=== PATIENT | female | born 1945 | race Caucasian/White ===

== ENCOUNTER → 2016-05-18 | Outpatient (CLI) | payer MEDICARE ==
--- NOTE | 2016-05-18 10:56 | WWHP ---
DATE OF SERVICE: 05/18/2016 CHIEF COMPLAINT: The patient is here for her routine gynecologic exam and mammogram. HPI: This is a 70-year-old G3, P3 with an LMP of 1984 who is status post LYSSA and later BSO for benign reasons. The patient is without gynecologic complaints. PAST MEDICAL HISTORY: Hypothyroidism, chronic hypertension, elevated cholesterol, seasonal allergies and fibromyalgia. MEDICATIONS: 1. Thuy 1 daily. 2. Aspirin 81 mg daily. 3. Lisinopril 5 mg daily. 4. Vitamin D 50,000 units weekly. 5. Red rice yeast 500 mg daily. 6. CoQ10, 100 mg b.i.d. 7. A digestive advantage supplement daily. Allergies to ERYTHROMYCIN, SULFA, and BIAXIN. PAST SURGICAL HISTORY: section x3, LYSSA 1984, BSO in 1996, multiple colonoscopies in the past and the most recent one was in 2014. SOCIAL HISTORY: She denies tobacco, alcohol, and drug use. She has been since 1970 and is retired. She likes to travel in their motor home. FAMILY HISTORY: Sister had colon cancer, father had cirrhosis of the liver and mother had an TX. REVIEW OF SYSTEMS: Weight has been stable. She denies respiratory, cardiac, or GI problems. She denies maltreatment or falling. : She has not had a significant problems with bladder incontinence. PHYSICAL EXAM: Blood pressure 138/77. Height 5 feet 5 inches. Weight 176 pounds. Temperature 96.7, pulse 71. This a well-developed, well-nourished white female who is alert and oriented x3 in no acute distress. HEENT is within normal limits. NECK: Supple without mass or thyromegaly. CHEST AND LUNGS: Clear to auscultation. HEART: Regular rate and rhythm. Breasts are without mass or discharge. Axillary exam is negative for adenopathy. BACK: Negative for CVA tenderness. ABDOMEN: Soft, nontender, without palpable masses. PELVIC EXAM: External genitalia reveals mild to moderate atrophy without lesions. Vagina reveals moderate atrophy without lesions. There is no evidence of prolapse. Bimanual exam is negative for mass or tenderness. Rectovaginal exam is negative for mass or tenderness and is negative for occult blood. EXTREMITIES: Nontender. IMPRESSION: A 70-year-old menopausal female, status post LYSSA/BSO for benign reasons with normal gynecologic exam. PLAN: 1. Pap smears have been discontinued. 2. Self breast examination was discussed. 3. Mammogram will be done today. 4. Osteoporosis prevention was discussed. 5. We will plan on having her repeat her bone density test next year. 6. She is declining flu shots and I recommended that she look into doing this. 7. She will continue to check home blood pressures and follow up with her primary care physician for her blood pressure elevations. 8. She will return in one year.
--- NOTE | 2016-05-19 09:06 | MM ---
Reason for exam: screening (asymptomatic). Last mammogram was performed 1 year and 2 months ago. History: Patient is postmenopausal and history of other cancer. Family history of breast cancer in 2 aunts. Physical Findings: A clinical breast exam by your physician is recommended on an annual basis and results should be correlated with mammographic findings. MG 3D Screening Mammo W/Cad Bilateral CC and MLO view(s) were taken. Prior study comparison: March 13, 2015, bilateral MG screening mammo w CAD. January 01, 2014, bilateral MG screening mammo w CAD. The breast tissue is heterogeneously dense. This may lower the sensitivity of mammography. Finding: Architectural distortion in the 3 o'clock position of the left breast, 7-8 cm from the nipple. New finding since March 13, 2015 and January 01, 2014. ASSESSMENT: Incomplete: need additional imaging evaluation, BI-RAD 0 RECOMMENDATION: Ultrasound of the left breast. [facility] will attempt to contact patient to return for ultrasound.
== END | disposition home or self-care (01) ==
LOC: WWCWWP 09:14
PROVIDERS: ATTEND Obstetrics & Gynecology
DX: Z12.31 Encounter for screening mammogram for malignant neoplasm of breast (principal); R92.8 Other abnormal and inconclusive findings on diagnostic imaging of breast
CPT/HCPCS: 77063; G0202

== ENCOUNTER → 2016-05-20 | Outpatient (CLI) | payer MEDICARE ==
--- NOTE | 2016-05-20 11:15 | USB ---
Reason for exam: additional evaluation requested from abnormal screening. History: Patient is postmenopausal and history of other cancer. Family history of breast cancer in 2 aunts. Physical Findings: Nurse did not find any significant physical abnormalities on exam. US Breast Workup LT Left breast ultrasound including all four quadrants, the retroareolar region and axilla demonstrates a 0.59 x 0.26 x 0.49cm solid, shadowing and irregular appearing lesion at 1 o'clock for which a biopsy is recommended, a 0.76 x 1.0 x 1.0cm solid, irregular, taller than wide lesion at 3 o'clock for which a biopsy is recommended and a 0.36 x 0.34 x 0.45cm mixed, indeterminate lesion at the axilla tail at 1 o'clock for which a biopsy is recommended. These results were verbally communicated with the patient and result sheet given to the patient on 05/20/16. ASSESSMENT: Incomplete: need additional imaging evaluation, BI-RAD 0 RECOMMENDATION: Special view mammogram of the left breast.
--- NOTE | 2016-05-20 11:21 | MM ---
Reason for exam: additional evaluation requested from abnormal screening. Last mammogram was performed less than 1 month ago. History: Patient is postmenopausal and history of other cancer. Family history of breast cancer in 2 aunts. MG Work Up Mamm w CAD LT LM view(s) were taken of the left breast. Prior study comparison: May 18, 2016, bilateral MG 3d screening mammo w/ cad. March 13, 2015, bilateral MG screening mammo w CAD. January 01, 2014, bilateral MG screening mammo w CAD. The breast tissue is heterogeneously dense. This may lower the sensitivity of mammography. There is chronic nodularity in the left breast. 3 o'clock spiculated mass at a middle depth redemonstrated. These results were verbally communicated with the patient and result sheet given to the patient on 05/20/16. ASSESSMENT: Suspicious, BI-RAD 4 RECOMMENDATION: Surgical consultation and ultrasound core biopsy of the left breast (3 sites) Called Dr. Stapleton with mammographic findings and has scheduled an appointment for the patient for 05/21/16 at 11:[address] Stapleton. Biopsy scheduled for 05/28/16 at 11:00 PRELIMINARY REPORT CALLED AND FAXED TO DR. STAPLETON ON 05/20/16 AT 300/TP. [facility]
== END | disposition home or self-care (01) ==
LOC: RADUSWWP 08:20
PROVIDERS: ATTEND Obstetrics & Gynecology
DX: R92.8 Other abnormal and inconclusive findings on diagnostic imaging of breast (principal)
CPT/HCPCS: 76641; G0206

== ENCOUNTER → 2016-05-28 | Day surgery (SDC) | payer MEDICARE ==
[~2016-05-28] MED LIST: ALPRAZolam 0.25 MG TAB ONE; BACITRACIN OINT 1 EACH PACKET TOPICAL ONE; LIDOCAINE 1% INJ 10MG/ML (20 ML MDV) ONE; SODIUM BICARB 4% 5 ML VIAL (0.48 MEQ/ML) ONE
--- NOTE | 2016-05-28 13:00 | USB ---
EXAMINATION TYPE: US biopsy breast VAD LT, US biopsy breast add'l VAD LT, MG diagnostic mammo LT wo CAD DATE OF EXAM: 05/28/2016 11:16 AM CLINICAL HISTORY: R92.8 Abnormal Mammogram. TECHNIQUE: Ultrasound guided core biopsy of left breast at site 3:00 and 2:00 near the axillary tail. A third area at 1:00 could not be reproduced. COMPARISON: NONE FINDINGS: The procedure of ultrasound guided core biopsy was explained to the patient. Benefits, alternatives, and risks were discussed. An informed consent was then obtained. The patient was placed in supine positioning for imaging and for the procedure. The overlying skin was prepped and draped in usual sterile fashion. Lidocaine buffered with bicarbonate was used as anesthetic into the skin and subcutaneous tissue up to area of concern in the left breast at 2 and 3:00 breast. A yonatan was made with surgical scalpel. Under ultrasound guidance, a 12-gauge vacuum assisted biopsy gun device was used to obtain 4 core samples from the 3:00 lesion and 5 samples from the 2:00 lesion. Following this, a biopsy clip were left in lesions. The patient tolerated the procedure well without any immediate complication. The patient was kept in the radiology department for short stay after the procedure and then discharged home in stable condition. IMPRESSION: Successful, uncomplicated ultrasound guided core biopsy of area of concern in the left breast at two sites, full pathology results to follow. Pathology Results: Malignant A. BREAST, LEFT, THREE O'CLOCK, CORE BIOPSY: INVASIVE LOBULAR CARCINOMA. SEE SURGICAL PATHOLOGY CANCER CASE SUMMARY AND COMMENT. B. BREAST, LEFT, TWO O'CLOCK, CORE BIOPSY: BENIGN LYMPH NODE TISSUE. CK7 AND MARQUIS IMMUNOPEROXIDASE STAINS ARE CONFIRMATORY (CONTROLS APPROPRIATE). Recommendation Surgical consult of the left breast. MTDD
== END ==
LOC: RADUSWWP 09:43
PROVIDERS: ATTEND Surgery
DX: C50.912 Malignant neoplasm of unspecified site of left female breast (principal)
CPT/HCPCS: 88305; 88342; 88341; 19083; 19084; G0206; A4648; J2001; 88361

== ENCOUNTER 2016-06-08 10:56 | Day surgery (SDC) | payer MEDICARE ==
[2016-06-04 11:42] VITALS: BMI 29.2
[~2016-06-08 10:56] MED LIST changes: -ALPRAZolam 0.25 MG TAB ONE; +ALPRAZolam 0.25 MG TAB PO PRN; -BACITRACIN OINT 1 EACH PACKET TOPICAL ONE; +DEXAMETHASONE SOD PHOSPHATE 10 MG/ML 1 ML VIAL IV ONE; +HEPARIN SODIUM,PORCINE 5,000 UNIT/ML 1 ML VIAL SQ ONE; +HYDROmorphone 1 MG/ML 1 ML SYRINGE IVP PRN; +LACTATED RINGERS 1,000 ML IV SCH; -LIDOCAINE 1% INJ 10MG/ML (20 ML MDV) ONE; +ONDANSETRON 4 MG/2 ML VIAL IVP ONE; +Pre Op ABX Message 1 EACH MISC MISCELLANE ONE; -SODIUM BICARB 4% 5 ML VIAL (0.48 MEQ/ML) ONE
[2016-06-08] MEDS ORDERED: LIDOCAINE 1% 20 ML VIAL (10MG/ML) FOR IV START INTRADERMA ONE (11:40)
[2016-06-08 12:05] VITALS: TEMP 98
[2016-06-08] MEDS ORDERED: SODIUM BICARB 4% 5 ML VIAL (0.48 MEQ/ML) MISCELLANE ONE (12:09)
[2016-06-08] MEDS ORDERED: LIDOCAINE 1% INJ 10MG/ML (20 ML MDV) SQ ONE (12:09)
--- NOTE | 2016-06-08 13:31 | NM ---
EXAMINATION TYPE: NM sentinel node injection DATE OF EXAM: 06/08/2016 12:39 PM COMPARISON: NONE HISTORY: Left breast cancer TECHNIQUE AND FINDINGS: The procedure of sentinel lymph node injection was explained to the patient. The benefits, alternatives, and risks were discussed. An informed consent was then obtained. Overlying skin is cleaned with sterile alcohol. Lidocaine buffered with bicarbonate was used as anes thetic into the skin and subcutaneous tissue surrounding the nipple. Following this, 517 uCi Tc 99m Filtered Sulfur Colloid was injected into 4 equivalent doses at 12, 3, 6, and 9:00 position surroundi ng the left nipple intradermally. The injection sites were massaged by nuclear medicine officer for 10 minutes after injection. T he patient tolerated the procedure well without any immediate complication. The patient was kept in the radiology department for short stay after the procedure and then taken to surgery for surgical pr ocedure what is presumed intraoperative gamma probe will be used for sentinel lymph node detection. IMPRESSION: Left breast radiotracer injection for sentinel node localization as above.
[2016-06-08] MEDS ORDERED: ROCURONIUM BROMIDE 10 MG/ML 10 ML VIAL IV ONE (14:10)
[2016-06-08] MEDS ORDERED: SUCCINYLCHOLINE CHLORIDE 100 MG/5 ML SYR IV ONE (14:10)
[2016-06-08] MEDS ORDERED: fentaNYL (PF) 50 MCG/ML 2 ML AMP ONE (14:10)
[2016-06-08] MEDS ORDERED: NEOSTIGMINE 1 MG/ML 10 ML VIAL ONE (14:10)
[2016-06-08] MEDS ORDERED: ePHEDrine 50 MG/ML 1 ML AMP ONE (14:10)
[2016-06-08] MEDS ORDERED: LIDOCAINE 1% INJ 10MG/ML (20 ML MDV) ONE (14:10)
[2016-06-08] MEDS ORDERED: MIDAZOLAM 2 MG/2 ML VIAL ONE (14:10)
[2016-06-08] MEDS ORDERED: PROPOFOL 10 MG/ML 20 ML VIAL IV ONE (14:10)
[2016-06-08] MEDS ORDERED: GLYCOPYRROLATE 0.2 MG/ML 2 ML VIAL ONE (14:10)
[2016-06-08] MEDS ORDERED: SODIUM CHLORIDE 0.9% 50 ML with ceFAZolin 2,000 MG IV ONE ×2 (14:25)
[2016-06-08] MEDS ORDERED: METHYLENE BLUE 10 MG/ML 1 ML VIAL INJ ONE (15:26)
[2016-06-08] MEDS ORDERED: LACTATED RINGERS 1,000 ML IV ONE (15:53)
--- NOTE | 2016-06-08 15:59 | P.OP ---
Date of Procedure: 06/08/16 Preoperative Diagnosis: Left breast cancer Postoperative Diagnosis: Same Procedure(s) Performed: Lymphatic mapping, sentinel node biopsy, left breast lumpectomy with onco- plastic tissue rearrangement and placement of Eve balloon Anesthesia: ERVIN Surgeon: Brenna Stapleton Estimated Blood Loss (ml): 30 IV fluids (ml): 700 Pathology: other (Left breast lumpectomy specimen, sentinel node) Condition: stable Disposition: PACU Operative Findings: Biopsy-proven left breast cancer Description of Procedure: Patient was taken to the operating room in the left breast and axilla were prepped and draped in a sterile fashion. Prior to this 6 mL of quarter strength methylene blue were injected in the periareolar region and the breast was massaged. The area of the needle localization site was evaluated. An incision was made and carried into the hook of the needle and surrounding tissue was excised. Margin probe interrogation was performed on the specimen and anteriorly there was one spot which was positive all others were negative. Wide reexcision was performed including the skin at this site. The specimen was painted for orientation and sent to radiology for confirmation that the area of concern had been removed was obtained. Following this the axilla was approached in the apical instrument and gowns and gloves were changed. The neoprobe was used to help us identify the recovery incision. An was made in the axilla was entered. One radioactive node was identified this had a 10 second count of 909. Background count was at 10 seconds 6. No blue nodes were identified. No other adenopathy of concern was palpated were identified. Frozen section evaluation the sentinel node was negative for cancer. Following this the deep tissues in the axilla were closed using 3-0 Vicryl suture. The skin was closed with 4-0 Monocryl. A Eve balloon device was placed in the cavity of the breast after the plastic tissue rearrangement was performed. The Eve device balloon was inflated to 30 mL of saline. The tissues of the breast were then approximated over the Eve balloon. The skin was then closed using 4- 0 Monocryl. Patient tolerated procedure in stable condition. All instrument and sponge counts were correct at the end of the case.
--- NOTE | 2016-06-08 16:03 | P.DS ---
Providers Attending physician: Brenna Stapleton Primary care physician: Erendira Elder Plan - Discharge Summary New Discharge Prescriptions: Cephalexin [Keflex] 250 mg PO Q8HR #30 capsule HYDROcodone/APAP 5-325MG [[place] 5] 1 - 2 each PO Q4H PRN #20 tab PRN Reason: Pain Discharge Medication List Aspirin 81 mg PO DAILY 06/04/16 [History] Ergocalciferol [Vitamin D2 (DRISDOL)] 50,000 unit PO MO 06/04/16 [History] Fexofenadine HCl [Thuy Allergy] 180 mg PO DAILY 06/04/16 [History] L.acidoph,Paracasei, B.lactis [Probiotic] 1 each PO DAILY 06/04/16 [History] Lisinopril [Lisinopril] 5 mg PO QAM 06/04/16 [History] Red Yeast Rice 600 mg PO DAILY 06/04/16 [History] Rosuvastatin Calcium [Crestor] 5 mg PO MOFR 06/04/16 [History] Ubidecarenone [Co Q-10] 100 mg PO BID 06/04/16 [History] Cephalexin [Keflex] 250 mg PO Q8HR #30 capsule 06/08/16 [Rx] HYDROcodone/APAP 5-325MG [[place] 5] 1 - 2 each PO Q4H PRN #20 tab 06/08/16 [Rx] Follow up Appointment(s)/Referral(s): Brenna Stapleton MD [STAFF PHYSICIAN] - 3 Days Activity/Diet/Wound Care/Special Instructions: Do not drive until seen by Dr. Rondon Do not shower until seen by Dr. Rondon Keep drain dressing at Eve site Discharge Disposition: HOME SELF-CARE
[2016-06-08] MEDS ORDERED: ONDANSETRON 4 MG/2 ML VIAL IVP ONE (16:37)
[2016-06-08 17:00] VITALS: RESP 18
[2016-06-08 17:14] VITALS: BP 147/90; PULSE 82
--- NOTE | 2016-06-11 08:12 | MM ---
Mammographic specimen INDICATION: Wire localization TECHNIQUE: Single mammographic specimen FINDINGS: The wire is within the specimen. The localized clip is within the specimen. The area in question is within the specimen. IMPRESSIONS: 1. Successful wire localization and excision. Recommendations: 1. Recommendations are pending pathology results. Pathology Results: Malignant A. SENTINEL LYMPH NODE, BIOPSY: LYMPH NODE WITH EXTENSIVE FAT REPLACEMENT, NEGATIVE FOR METASTATIC MALIGNANCY. CK7 AND MARQUIS IMMUNOPEROXIDASE STAINS PERFORMED ON BLOCKS A1 AND A2 ARE CONFIRMATORY (CONTROLS APPROPRIATE). B. BREAST, LEFT, LUMPECTOMY: INVASIVE LOBULAR CARCINOMA. BENIGN INTRAMAMMARY LYMPH NODE. SEE SURGICAL PATHOLOGY CANCER CASE SUMMARY. C. BREAST, LEFT, NEW ANTERIOR MARGIN: BENIGN SKIN AND BREAST TISSUE WITH FIBROCYSTIC CHANGES AND DUCT ECTASIA. Recommendation Surgical consult of the left breast. SANDRA
--- NOTE | 2016-06-18 19:55 | OP ---
DATE OF SERVICE: 06/08/2016 SURGEON: BRITT CLARKE MD CEILING INSULATION BLOWER: PREOPERATIVE DIAGNOSIS: POSTOPERATIVE DIAGNOSIS: OPERATION: ANESTHESIA: ESTIMATED BLOOD LOSS: SPECIMENS REMOVED: COMPLICATIONS: OPERATIVE FINDINGS: DESCRIPTION OF PROCEDURE: ADDENDUM: Please note that the patient had a lumpectomy with oncoplastic tissue rearrangement and placement of savvy balloon catheter. The cavity itself after lumpectomy was approximately 10 x 5 cm. Oncoplastic tissue transfer was performed to cover this area and the amount of tissue rearrangement was approximately 50 sq cm. Please note that a savvy balloon was placed and the tissue was mobilized in an oncoplastic technique to cover this area of the savvy balloon.
== END 2016-06-08 17:45 | disposition home or self-care (01) ==
LOC: OR 10:56
PROVIDERS: ATTEND Surgery
DX: C50.912 Malignant neoplasm of unspecified site of left female breast (principal); N60.42 Mammary duct ectasia of left breast; E78.5 Hyperlipidemia, unspecified; I10 Essential (primary) hypertension; Z79.899 Other long term (current) drug therapy; Z88.8 Allergy status to other drugs, medicaments and biological substances
CPT/HCPCS: 38792; 76098; 88307; 88331; 88332; 88341; 88342

== ENCOUNTER → 2016-09-08 | Outpatient (CLI) | payer MEDICARE ==
--- NOTE | 2016-09-08 17:22 | BD ---
EXAMINATION TYPE: MG DEXA axial skeleton. DATE OF EXAM: 09/08/2016 10:31 AM COMPARISON: NONE CLINICAL HISTORY: 70-year-old female history of breast cancer, postmenopausal screening Height: 5 FT 4 IN Weight: 177 FRAX RISK QUESTIONS: Alcohol (3 or more units per day): NO Family History (Parent hip fracture): NO Glucocorticoids (More than 3mos): NO (Ex: prednisone, prednisolone, methylprednisolone, dexamethasone, and hydrocortisone). History of Fracture in Adulthood: NO Secondary Osteoporosis: 1. Type 1 Diabetes: NO 2. Hyperthyroidism: NO 3. Menopause before 45: NO 4. Malnutrition: NO 5. Chronic liver disease: NO Rheumatoid Arthritis: NO Current Tobacco Use: NO RISK FACTORS HISTORY OF: Active: YES Postmenopausal woman: AGE 49 MEDICATIONS: Prednisone or other steroids: How Long: Thyroid Medications: Which medication: How Long: Osteoporosis Medications: Which medication: How Long: Additional Medications: ROVUVASTATIN, VIT D, LISINOPRIL, RODRICK Additional History: BREAST CANCER MAY 2016 RADIATION EXAM MEASUREMENTS: Bone mineral densitometry was performed using the [employer] System. Bone mineral density as measured about the Lumbar spine is: ----- L1-L4(G/cm2): 1.238 T Score Values are as follows: ----- L2: 0.6 ----- L3: 0.6 ----- L4: 1.0 ----- L1-L4: 0.5 BASELINE Bone mineral density about the R hip (g/cm2): 0.959 Bone mineral density about the L hip (g/cm2): 1.012 T Score values are as follows: -----R Neck: -0.6 -----L Neck: -0.2 -----R Total: 0.5 -----L Total: 0.8 BASELINE IMPRESSION: Normal (Values between +1 and -1 indicate normal bone mass). Consider repeating this study in 5 year s or sooner if there is some new clinical indication. NOTE: T-SCORE=SD OF THE YOUNG ADULT MEAN.
== END ==
LOC: RADBDWWP 10:02
PROVIDERS: ATTEND Internal Medicine Hematology & Oncology
DX: C50.919 Malignant neoplasm of unspecified site of unspecified female breast (principal); N95.1 Menopausal and female climacteric states
CPT/HCPCS: 77080

== ENCOUNTER 2016-12-23 15:27 | Emergency (ER) | payer MEDICARE ==
--- NOTE | 2016-12-23 16:00 | ED ---
Skin/Abscess/FB HPI - General Chief complaint: Skin/Abscess/Foreign Body Stated complaint: Dr Agatha Time Seen by Provider: 12/23/16 15:36 Source: patient, family Mode of arrival: ambulatory Limitations: no limitations - History of Present Illness Initial comments: 70-year-old female patient presents to emergency department today for evaluation of left breast redness. Patient states that she noticed the discoloration when she woke this morning. Patient states that yesterday she did have a headache, felt more tired than usual, did have some nausea, and chills. Patient states that she didn't notice the redness yesterday however she states that she was camping and did not have any mirrors available. Patient denies any pain to the breast, drainage from the nipple, or itching. She denies any wounds or injury. Patient was treated for stage I breast cancer in June, she had lumpectomy as well as radiation to the site. Patient states that her last mammogram was at diagnosis and she is due to have one next week. Patient denies any known fever, sweats, dizziness, weakness, abdominal pain, back pain, chest pain, shortness of breath, hematuria, dysuria, constipation, diarrhea, hematochezia or melena. Patient states she has been urinating more frequent and was treated for a urinary tract infection 1 month ago. She is concerned it may have returned. - Related Data Home Medications Medication Instructions Recorded Confirmed Ergocalciferol [Vitamin D2 50,000 unit PO MO 06/04/16 12/23/16 (DRISDOL)] Fexofenadine HCl [Thuy Allergy] 180 mg PO QAM 06/04/16 12/23/16 L.acidoph,Paracasei, B.lactis 1 cap PO QAM 06/04/16 12/23/16 [Probiotic] Lisinopril [Lisinopril] 5 mg PO QAM 06/04/16 12/23/16 Red Yeast Rice 600 mg PO QAM 06/04/16 12/23/16 Rosuvastatin Calcium [Crestor] 5 mg PO MOWEFR 06/04/16 12/23/16 Ubidecarenone [Co Q-10] 100 mg PO BID 06/04/16 12/23/16 Aspirin EC [Ecotrin Low Dose] 81 mg PO QAM 12/23/16 12/23/16 Letrozole [Femara] 2.5 mg PO QAM 12/23/16 12/23/16 Magnesium Oxide [Mag-Ox] 400 mg PO HS 12/23/16 12/23/16 Triamcinolone Acetonide [Nasacort] 1 spray EA NOSTRIL BID PRN 12/23/16 12/23/16 Previous Rx's Medication Instructions Recorded Cephalexin [Keflex] 500 mg PO Q6HR #40 cap 12/23/16 Clindamycin [Cleocin] 450 mg PO Q6H #40 capsule 12/23/16 Allergies Allergy/AdvReac Type Severity Reaction Status Date / Time Sulfa (Sulfonamide Allergy Dyspnea Verified 12/23/16 17:43 Antibiotics) Review of Systems ROS Statement: Those systems with pertinent positive or pertinent negative responses have been documented in the HPI. ROS Other: All systems not noted in ROS Statement are negative. Past Medical History Past Medical History: Hyperlipidemia, Hypertension Additional Past Medical History / Comment(s): lt breast CA,vertigo History of Any Multi-Drug Resistant Organisms: None Reported Past Surgical History: Breast Surgery, Section, Cholecystectomy, Hysterectomy Additional Past Surgical History / Comment(s): lt breast bx, c sect x3, oophorectomy Past Anesthesia/Blood Transfusion Reactions: Motion Sickness, Postoperative Nausea & Vomiting (PONV) Additional Past Anesthesia/Blood Transfusion Reaction / Comment(s): vertigo. no hx blood transfusion. Past Psychological History: No Psychological Hx Reported Smoking Status: Never smoker Past Alcohol Use History: None Reported - Past Family History Mother Family Medical History: Myocardial Infarction ([place]) Additional Family Medical History / Comment(s): mother's 2 sisters had breast CA. Father Family Medical History: Liver Disease Additional Family Medical History / Comment(s): cirrhosis,heart problems Sister(s) Family Medical History: Cancer Additional Family Medical History / Comment(s): colon General Exam Limitations: no limitations General appearance: alert, in no apparent distress Eye exam: Present: normal appearance, PERRL, EOMI. Absent: scleral icterus, conjunctival injection, periorbital swelling Neck exam: Present: normal inspection, full ROM. Absent: tenderness, meningismus, lymphadenopathy Respiratory exam: Present: normal lung sounds bilaterally. Absent: respiratory distress, wheezes, rales, rhonchi, stridor Cardiovascular Exam: Present: regular rate, normal rhythm, normal heart sounds. Absent: systolic murmur, diastolic murmur, rubs, gallop, clicks GI/Abdominal exam: Present: soft, normal bowel sounds. Absent: distended, tenderness, guarding, rebound, rigid Extremities exam: Present: normal inspection, full ROM, normal capillary refill. Absent: tenderness, pedal edema, joint swelling, calf tenderness Back exam: Present: normal inspection Neurological exam: Present: alert, oriented X3, CN II-XII intact Psychiatric exam: Present: normal affect, normal mood Skin exam: Present: warm, dry, intact, normal color, other (Left breast erythema , warmth, standing to the lower two thirds of the breast. Breast is soft, no palpable lumps, no evidence of abscess. There is a scar to the left lateral breast at 9:00 from a previous lumpectomy site. Scar is well-healed well approximated. No drainage noted from the nipple.). Absent: rash Course Vital Signs 12/23/16 12/23/16 12/23/16 15:30 16:15 18:12 Temperature 99.1 F 98.4 F 98.1 F Pulse Rate 101 H 81 Respiratory 20 16 Rate Blood Pressure 166/77 145/90 O2 Sat by Pulse 99 96 Oximetry Medical Decision Making - Medical Decision Making 70-year-old female patient presented today for evaluation of left breast erythema. Lab work was performed and was unremarkable, white blood cell count was within normal limits, lactic acid was negative. Blood cultures were sent. Ultrasound of the left breast was obtained and did show an anechoic area measuring 1 cm at the 3 to 4 o'clock position on the breast, they described this as a fluid collection around 10 mm in size and stated that it could be a seroma, abscess, or hematoma. Patient states she did have a procedure for radiation she is unsure what the name was however they told her that she may have a small fluid collection remaining in the breast once this was complete. Vital signs are stable, patient afebrile during stay. Will discharge patient home with a prescription for Keflex and clindamycin. She is also given instructions to take Tylenol if the area becomes painful. She was instructed to follow up with her surgeon Dr. Alcon Al as soon as possible for reevaluation as she did treat her breast cancer in June. Patient was also instructed to follow-up with her primary care physician for a recheck in 1-2 days. Patient instructed to return immediately for any new, worsening, or concerning symptoms. Did discuss development of fever and [place] patient regarding the need to return if this happens. Patient verbalized understanding and agreed with this plan. - Lab Data Result diagrams: 12/23/16 16:02 12/23/16 16:02 Lab Results 12/23/16 12/23/16 12/23/16 Range/Units 16:02 16:02 16:02 WBC 6.5 (3.8-10.6) k/uL RBC 4.25 (3.80-5.40) m/uL Hgb 13.1 (11.4-16.0) gm/dL Hct 38.8 (34.0-46.0) % MCV 91.3 (80.0-100.0) fL MCH 30.8 (25.0-35.0) pg MCHC 33.8 (31.0-37.0) g/dL RDW 13.5 (11.5-15.5) % Plt Count 203 (150-450) k/uL Neutrophils % 74 % Lymphocytes % 17 % Monocytes % 5 % Eosinophils % 1 % Basophils % 0 % Neutrophils # 4.8 (1.3-7.7) k/uL Lymphocytes # 1.1 (1.0-4.8) k/uL Monocytes # 0.3 (0-1.0) k/uL Eosinophils # 0.1 (0-0.7) k/uL Basophils # 0.0 (0-0.2) k/uL Sodium 141 (137-145) mmol/L Potassium 4.1 (3.5-5.1) mmol/L Chloride 109 H (98-107) mmol/L Carbon Dioxide 22 (22-30) mmol/L Anion Gap 10 mmol/L BUN 21 H (7-17) mg/dL Creatinine 0.80 (0.52-1.04) mg/dL Est GFR (MDRD) Af Amer >60 (>60 ml/min/1.73 sqM) Est GFR (MDRD) Non-Af >60 (>60 ml/min/1.73 sqM) Glucose 116 H (74-99) mg/dL Plasma Lactic Acid Kike 0.6 L (0.7-2.0) mmol/L Calcium 9.3 (8.4-10.2) mg/dL Total Bilirubin 0.6 (0.2-1.3) mg/dL AST 51 H (14-36) U/L ALT 63 H (9-52) U/L Alkaline Phosphatase 117 (38-126) U/L Total Protein 6.0 L (6.3-8.2) g/dL Albumin 3.5 (3.5-5.0) g/dL Urine Color Urine Appearance (Clear) Urine pH (5.0-8.0) Ur Specific [place] (1.001-1.035) Urine Protein (Negative) Urine Glucose (UA) (Negative) Urine Ketones (Negative) Urine Blood (Negative) Urine Nitrite (Negative) Urine Bilirubin (Negative) Urine Urobilinogen (<2.0) mg/dL Ur Leukocyte Esterase (Negative) 12/23/16 Range/Units 16:02 WBC (3.8-10.6) k/uL RBC (3.80-5.40) m/uL Hgb (11.4-16.0) gm/dL Hct (34.0-46.0) % MCV (80.0-100.0) fL MCH (25.0-35.0) pg MCHC (31.0-37.0) g/dL RDW (11.5-15.5) % Plt Count (150-450) k/uL Neutrophils % % Lymphocytes % % Monocytes % % Eosinophils % % Basophils % % Neutrophils # (1.3-7.7) k/uL Lymphocytes # (1.0-4.8) k/uL Monocytes # (0-1.0) k/uL Eosinophils # (0-0.7) k/uL Basophils # (0-0.2) k/uL Sodium (137-145) mmol/L Potassium (3.5-5.1) mmol/L Chloride (98-107) mmol/L Carbon Dioxide (22-30) mmol/L Anion Gap mmol/L BUN (7-17) mg/dL Creatinine (0.52-1.04) mg/dL Est GFR (MDRD) Af Amer (>60 ml/min/1.73 sqM) Est GFR (MDRD) Non-Af (>60 ml/min/1.73 sqM) Glucose (74-99) mg/dL Plasma Lactic Acid Kike (0.7-2.0) mmol/L Calcium (8.4-10.2) mg/dL Total Bilirubin (0.2-1.3) mg/dL AST (14-36) U/L ALT (9-52) U/L Alkaline Phosphatase (38-126) U/L Total Protein (6.3-8.2) g/dL Albumin (3.5-5.0) g/dL Urine Color Yellow Urine Appearance Clear (Clear) Urine pH 6.0 (5.0-8.0) Ur Specific [place] 1.026 (1.001-1.035) Urine Protein Trace H (Negative) Urine Glucose (UA) Negative (Negative) Urine Ketones Negative (Negative) Urine Blood Negative (Negative) Urine Nitrite Negative (Negative) Urine Bilirubin Negative (Negative) Urine Urobilinogen 3.0 (<2.0) mg/dL Ur Leukocyte Esterase Negative (Negative) - Radiology Data Radiology results: report reviewed, image reviewed Ultrasound of the left breast shows an anechoic lesion seen at 3:00 in the equals 1.1 x 1.0 x 0.9 cm. Nonvascular. Inflammation seen. Impression by Dr. Love states there is an irregular fluid collection in the 4 o'clock position measuring 10 mm. This appearance is nonspecific and could be hematoma or seroma or even an abscess. Disposition Clinical Impression: Cellulitis of left breast, Left breast mass Disposition: HOME SELF-CARE Condition: Good Instructions: Cellulitis (ED) Additional Instructions: Complete antibiotic prescriptions in full. Take probiotic while taking antibiotics. You can obtain these at the drugstore. Follow up with Dr. Alcon Al in one to 2 days for recheck. Follow up with primary care physician one to 2 days for recheck. Return immediately for any worsening of the redness, fever, chills, or any other new or concerning symptoms. Prescriptions: Cephalexin [Keflex] 500 mg PO Q6HR #40 cap Clindamycin [Cleocin] 450 mg PO Q6H #40 capsule Referrals: Erendira Elder MD [Primary Care Provider] - 1-2 days Brenna Stapleton MD [STAFF PHYSICIAN] - 1-2 days Time of Disposition: 17:57
[2016-12-23 16:11] LABS: Appearance,Urine Clear (Clear); Bilirubin,Urine Negative (Negative); Glucose,Urine (UA) Negative (Negative); Ketones,Urine Negative (Negative); Leukocyte Esterase,Urine Negative (Negative); Nitrite,Urine Negative (Negative); Protein,Urine Trace (Negative); Specific Gravity,Urine 1.026 (1.001-1.035); UA Billing (MACRO vs. MICRO) CHEM
[2016-12-23 16:12] LABS: Basophils % (A) 0 %; CH 31.3; CHCM 34.4; Eosinophils # (A) 0.1 k/uL (0-0.7); Eosinophils % (A) 1 %; HCT 38.8 % (34.0-46.0); HDW 2.25; HGB 13.1 gm/dL (11.4-16.0); Luc # (Auto) 0.13; Luc % (Auto) 2; Lymphocytes # (A) 1.1 k/uL (1.0-4.8); Lymphocytes % (A) 17 %; MCH 30.8 pg (25.0-35.0); MCHC 33.8 g/dL (31.0-37.0); MCV 91.3 fL (80.0-100.0); Mean Platelet Volume 8.2; Monocytes # (A) 0.3 k/uL (0-1.0); Monocytes % (A) 5 %; Neutrophils # (A) 4.8 k/uL (1.3-7.7); Neutrophils % (A) 74 %; RBC 4.25 m/uL (3.80-5.40); RDW 13.5 % (11.5-15.5); WBC 6.5 k/uL (3.8-10.6); WBC (Perox) 6.43
[2016-12-23 16:22] LABS: ALT 63 U/L (9-52); AST 51 U/L (14-36); Alkaline Phosphatase 117 U/L (38-126); Anion Gap 10 mmol/L; Blood Urea Nitrogen 21 mg/dL (7-17); Calcium 9.3 mg/dL (8.4-10.2); Carbon Dioxide 22 mmol/L (22-30); Chloride 109 mmol/L (98-107); Glucose 116 mg/dL (74-99); Non-African American GFR(MDRD) >60 (>60 ml/min/1.73 sqM); Potassium 4.1 mmol/L (3.5-5.1); Sodium 141 mmol/L (137-145); Total Bilirubin 0.6 mg/dL (0.2-1.3)
--- NOTE | 2016-12-23 17:36 | USB ---
EXAMINATION TYPE: US breast complete LT DATE OF EXAM: 12/23/2016 COMPARISON: CLINICAL HISTORY: Pain. Lumpectomy in June, around 3:00 area per patient. Patient states having one week of radiation. Left breast is red and discomfort to touch. Patient states noticing it today. Anechoic lesion seen at 3:00 = 1.1 x 1.0 x 0.9 cm. Nonvascular. Inflammation seen. IMPRESSION: Irregular fluid collection in the 4 clock position measures 10 mm. This appearance is no nspecific and could be hematoma or seroma or even an abscess.
[2016-12-23 18:13] VITALS: BP 145/90; PULSE 81; RESP 16; TEMP 98.1
== END 2016-12-23 18:13 | disposition home or self-care (01) ==
LOC: EC 15:27
DX: N61.0 Mastitis without abscess (principal); N63 Unspecified lump in breast; E78.5 Hyperlipidemia, unspecified; I10 Essential (primary) hypertension; Z85.3 Personal history of malignant neoplasm of breast; Z88.2 Allergy status to sulfonamides; Z79.82 Long term (current) use of aspirin; Z79.899 Other long term (current) drug therapy
CPT/HCPCS: 36415; 80053; 81003; 83605; 85025; 87040; 99284

== ENCOUNTER → 2017-01-05 | Outpatient (CLI) | payer MEDICARE ==
--- NOTE | 2017-01-05 11:45 | MM ---
Reason for exam: follow-up at short interval from prior study. Last mammogram was performed 7 months ago. History: Patient is postmenopausal, has history of breast cancer at age 70, and history of other cancer. Family history of breast cancer in 2 aunts. Malignant MG pre op needle loc LT of the left breast, June 08, 2016. Lumpectomy of the left breast, June 08, 2016. Malignant US biopsy breast VAD LT of the left breast, May 28, 2016. Malignant US biopsy breast add'l VAD LT of the left breast, May 28, 2016. Physical Findings: Nurse did not find any significant physical abnormalities on exam. MG 3D Diag Mammo W/Cad SHIN Bilateral CC and MLO view(s) were taken. Prior study comparison: December 23, 2016, left breast US breast LT. May 28, 2016, left breast MG diagnostic mammo LT wo CAD. May 20, 2016, left breast MG work up mamm w CAD LT. The breast tissue is heterogeneously dense. This may lower the sensitivity of mammography. No suspicious abnormality, post therapy left breast. No significant new findings when compared with previous films. These results were verbally communicated with the patient and result sheet given to the patient on 01/05/17. ASSESSMENT: Benign, BI-RAD 2 RECOMMENDATION: Follow-up diagnostic mammogram of both breasts in 1 year.
== END | disposition home or self-care (01) ==
LOC: RADMAMWWP 10:37
PROVIDERS: ATTEND Radiology Radiation Oncology
DX: C50.512 Malignant neoplasm of lower-outer quadrant of left female breast (principal)
CPT/HCPCS: G0204; G0279

== ENCOUNTER → 2017-05-25 | Outpatient (CLI) | payer MEDICARE ==
--- NOTE | 2017-05-25 12:49 | WWHP ---
[facility] - HISTORY AND PHYSICAL DATE OF DICTATION: 05/25/2017. CHIEF COMPLAINT: The patient is here for her routine gynecologic exam. HPI: This is a 71-year-old G3, P3, with an LMP of 1984. She is status post LYSSA and later BSO for benign reasons. The patient is without gynecologic complaints. PAST MEDICAL HISTORY: Left breast cancer stage IA, which was estrogen receptor positive in 2017. She is status post lumpectomy and radiation therapy in 2017. Also history of hypothyroidism, chronic hypertension, elevated cholesterol, seasonal allergies, and fibromyalgia. MEDICATIONS: 1. Somera 1 daily. 2. Thuy 1 daily. 3. Aspirin 81 mg daily. 4. Lisinopril 5 mg daily. 5. Vitamin D 50,000 units weekly. 6. Crestor generic 5 mg 3 times weekly. 7. Magnesium supplement daily. 8. Red rice yeast 500 mg daily. 9. CO-Q10 one hundred mg b.i.d. ALLERGIES: To ERYTHROMYCIN, SULFA, and BIAXIN. PAST SURGICAL HISTORY: section x3, LYSSA 1984, BSO 1996, multiple colonoscopies in the past and the most recent was in 2014. Left breast lumpectomy in 2017. 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 FAMILY HISTORY: Sister had colon cancer. Father had cirrhosis of the liver. Mother had an IA. SOCIAL HISTORY: Weight has been stable. She denies respiratory, cardiac or GI problems. She denies maltreatment or falling. : She denies any significant problems with urinary leakage. PHYSICAL EXAM: Blood pressure 145/88, height 5 feet 5 inches, weight 177 pounds, BMI 29. Temperature 97.7, pulse 96. This is a well-developed, well-nourished, white female, who is alert and oriented x3, in no acute distress. HEENT is within normal limits. NECK: Supple without mass or thyromegaly. CHEST AND LUNGS: Clear to auscultation. HEART: Regular rate and rhythm. BREASTS: The breast is consistent with the previous left lumpectomy in the outer quadrants at approximately the 2 to 3 o'clock position. There is slight firmness in the area of the lumpectomy consistent with scarring. There is no discrete mass in this area and no mass in the rest of the breast tissue. The breasts are nontender and there is no discharge. Axillary exam is negative for adenopathy. BACK: Negative for CVA tenderness. ABDOMEN: Soft, nontender, without palpable masses. PELVIC EXAM: External genitalia reveals moderate atrophy without lesions. Vagina reveals moderate atrophy without lesions. There is no evidence of prolapse. Bimanual exam is negative for mass or tenderness. Rectovaginal exam is negative for mass or tenderness and is negative for occult blood. EXTREMITIES: Nontender. IMPRESSION: 1. A 71-year-old menopausal female, status post total abdominal hysterectomy and bilateral salpingo-oophorectomy for benign reasons with normal gynecologic exam. 2. History of left breast cancer, status post lumpectomy and radiation therapy. There is no evidence of recurrence. PLAN: 1. Pap smears have been discontinued. 2. Self breast examination was discussed. 3. Mammogram will be due after 01/05/2018, and an order slip was given to the patient for a diagnostic mammogram. 4. Osteoporosis prevention was discussed. She did have a normal bone density test on 09/08/2016. 5. The patient is declining the flu shot. 6. She will follow up with Dr. Aldridge and Dr. Daniel regarding her breast cancer. 7. She will return in 1 year. MMODL / IJN: [id number] /
== END | disposition home or self-care (01) ==
LOC: CANPRECLI → WWCWWP 11:12
PROVIDERS: ATTEND Obstetrics & Gynecology
DX: Z53.9 Procedure and treatment not carried out, unspecified reason (principal)

== ENCOUNTER → 2018-01-10 | Outpatient (CLI) | payer MEDICARE ==
--- NOTE | 2018-01-11 08:39 | MM ---
Reason for exam: additional evaluation requested from prior study. Last mammogram was performed 1 year ago. History: Patient is postmenopausal, has history of breast cancer at age 70, and history of other cancer. Family history of breast cancer in 2 aunts. Malignant MG pre op needle loc LT of the left breast, June 08, 2016. Lumpectomy of the left breast, June 08, 2016. Malignant US biopsy breast VAD LT of the left breast, May 28, 2016. Malignant US biopsy breast add'l VAD LT of the left breast, May 28, 2016. Physical Findings: Nurse did not find any significant physical abnormalities on exam. MG 3D Diag Mammo W/Cad SHIN Bilateral CC and MLO view(s) were taken. Prior study comparison: January 05, 2017, bilateral MG 3d diag mammo w/cad SHIN. May 28, 2016, left breast MG diagnostic mammo LT wo CAD. The breast tissue is heterogeneously dense. This may lower the sensitivity of mammography. Previous mammotome biopsy in the left breast. Post surgical changes in the left breast. These results were verbally communicated with the patient and result sheet given to the patient on 01/10/18. ASSESSMENT: Probably benign, BI-RAD 3 RECOMMENDATION: Follow-up diagnostic mammogram of the left breast in 6 months.
== END | disposition home or self-care (01) ==
LOC: RADMAMWWP 10:44
PROVIDERS: ATTEND Radiology Radiation Oncology
DX: Z08 Encounter for follow-up examination after completed treatment for malignant neoplasm (principal); Z85.3 Personal history of malignant neoplasm of breast
CPT/HCPCS: 77066; G0279; 77062

== ENCOUNTER → 2018-05-16 | Outpatient (CLI) | payer MEDICARE ==
[2018-05-16 11:35] VITALS: BP 155/85; PULSE 84; RESP 18; TEMP 97.4; BMI 29.6
--- NOTE | 2018-05-16 12:11 | P.HPOB ---
History of Present Illness H&P Date: 05/16/18 Chief Complaint: The patient is here for her routine gynecologic exam. This is a 72-year-old G3 PIII with an LMP of 1984. She is status post LYSSA and later BSO for benign reasons. The patient is without gynecologic complaints. Review of Systems Weight has been stable. She denies respiratory, cardiac and G.I. problems. She denies maltreatment or problems with falling. : she denies any significant problems with urinary leakage. Past Medical History Past Medical History: Cancer (Left breast cancer 2017), Hyperlipidemia, Hypertension Additional Past Medical History / Comment(s): lt breast CA Stage 1A ER+ s/p lumpectomy and radiation therapy 2017, vertigo. 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 Previous LYSSA and later BSO. History of Any Multi-Drug Resistant Organisms: None Reported Past Surgical History: Breast Surgery (Left breast lumpectomy 2016), Section (x3), Cholecystectomy, Hysterectomy (LYSSA 1984 and BSO 1996.) Additional Past Surgical History / Comment(s): Multiple colonoscopies most recent 2014. Past Anesthesia/Blood Transfusion Reactions: Motion Sickness, Postoperative Nausea & Vomiting (PONV) Additional Past Anesthesia/Blood Transfusion Reaction / Comment(s): vertigo. no hx blood transfusion. Past Psychological History: No Psychological Hx Reported Smoking Status: Never smoker Past Alcohol Use History: None Reported Past Drug Use History: None Reported Additional History: She has been since 1970 and is retired. - Past Family History Mother Family Medical History: Myocardial Infarction ([place]) Additional Family Medical History / Comment(s): mother's 2 sisters had breast CA. Father Family Medical History: Liver Disease Additional Family Medical History / Comment(s): cirrhosis,heart problems Sister(s) Family Medical History: Cancer Additional Family Medical History / Comment(s): colon Medications and Allergies Home Medications Medication Instructions Recorded Confirmed Type Ergocalciferol [Vitamin D2 50,000 unit PO MO 06/04/16 05/16/18 History (DRISDOL)] Fexofenadine HCl [Thuy Allergy] 180 mg PO QAM 06/04/16 05/16/18 History L.acidoph,Paracasei, B.lactis 1 cap PO QAM 06/04/16 05/16/18 History [Probiotic] Lisinopril 5 mg PO QAM 06/04/16 05/16/18 History Red Yeast Rice 600 mg PO QAM 06/04/16 05/16/18 History Rosuvastatin Calcium [Crestor] 5 mg PO MOWEFR 06/04/16 05/16/18 History Ubidecarenone [Co Q-10] 100 mg PO BID 06/04/16 05/16/18 History Aspirin EC [Ecotrin Low Dose] 81 mg PO QAM 12/23/16 05/16/18 History Cephalexin [Keflex] 500 mg PO Q6HR #40 cap 12/23/16 05/16/18 Rx Clindamycin [Cleocin] 450 mg PO Q6H #40 capsule 12/23/16 05/16/18 Rx Letrozole [Femara] 2.5 mg PO QAM 12/23/16 05/16/18 History Magnesium Oxide [Mag-Ox] 400 mg PO HS 12/23/16 05/16/18 History Triamcinolone Acetonide [Nasacort] 1 spray EA NOSTRIL BID PRN 12/23/16 05/16/18 History Allergies Allergy/AdvReac Type Severity Reaction Status Date / Time Sulfa (Sulfonamide Allergy Dyspnea Verified 05/16/18 11:44 Antibiotics) Exam Vital Signs Temp Pulse Resp BP Pulse Ox 05/16/18 11:26 97.4 F L 84 18 155/85 98 Intake and Output 05/15/18 05/16/18 05/16/18 22:59 06:59 14:59 Other: Weight 80.739 kg Height 5'5", weight 178 pounds, BMI 29.6. This is a well-developed well-nourished white female who is alert and oriented times 3 in no acute distress. HEENT: Within normal limits. NECK: Supple without mass or thyromegaly. CHEST AND LUNGS: Clear to auscultation. HEART: Regular rate and rhythm. BREASTS: Are without mass or discharge. There is slight thickening of the left breast in the upper outer quadrant consistent with previous lumpectomy and radiation therapy. This is nontender. AXILLARY EXAM: Negative for adenopathy. BACK: Negative for CVA tenderness. ABDOMEN: Soft, nontender, without palpable masses. PELVIC EXAM: External genitalia appears normal with mild to moderate atrophy. Vagina appears normal with mild to moderate atrophy. There is no evidence of prolapse. Bimanual examination is negative for mass or tenderness. RECTAL EXAM: Rectovaginal exam is negative for mass or tenderness and is negative for occult blood. EXTREMITIES: Nontender. IMPRESSION: 1. 72-year-old menopausal female status post LYSSA and later BSO for benign reasons with normal gynecologic exam. 2. History of left breast cancer status post lumpectomy and radiation therapy with no evidence of recurrence at this time. PLAN: 1. Pap smears have been discontinued. 2. Self breast awareness was discussed with the patient. 3. Left diagnostic mammogram will be due in 2 months and the order slip was given to the patient for this. She will continue to follow-up with Dr. Sanjay Aldridge, her radiation oncologist. 4. Osteoporosis prevention was discussed. I have stressed the importance of adequate calcium, vitamin D and regular exercise. Recommended amounts of calcium and vitamin D were also discussed. She had a normal bone density test on 09/08/2016. We will plan on repeating this in approximately 4 years. 5. She did not receive flu shot this fall and she is not interested in getting one. 6. Her elevated blood pressure was discussed. She states her primary care physician is planning on increasing her blood pressure medication. She will follow-up with her primary care physician for her blood pressure. 7. She will return in one year.
== END ==
LOC: WWCWWP 11:13
PROVIDERS: ATTEND Obstetrics & Gynecology
DX: Z53.9 Procedure and treatment not carried out, unspecified reason (principal)

== ENCOUNTER → 2018-07-13 | Outpatient (CLI) | payer MEDICARE ==
--- NOTE | 2018-07-13 11:30 | MM ---
Reason for exam: follow-up at short interval from prior study. Last mammogram was performed 6 months ago. History: Patient is postmenopausal, has history of breast cancer at age 70, and history of other cancer. Family history of breast cancer in 2 aunts. Malignant MG pre op needle loc LT of the left breast, June 08, 2016. Lumpectomy of the left breast, June 08, 2016. Malignant US biopsy breast VAD LT of the left breast, May 28, 2016. Malignant US biopsy breast add'l VAD LT of the left breast, May 28, 2016. Took hormonal contraceptives for 10 years. Took antineoplastic for 1 year. Physical Findings: Nurse did not find any significant physical abnormalities on exam. MG 3D Diag Mammo W/Cad LT CC and MLO view(s) were taken of the left breast. Prior study comparison: January 10, 2018, bilateral MG 3d diag mammo w/cad SHIN. January 05, 2017, bilateral MG 3d diag mammo w/cad SHIN. The breast tissue is heterogeneously dense. This may lower the sensitivity of mammography. Left post therapy change on the left. These results were verbally communicated with the patient and result sheet given to the patient on 07/13/18. ASSESSMENT: Benign, BI-RAD 2 RECOMMENDATION: Routine screening mammogram of both breasts in 6 months. Back on schedule.
== END | disposition home or self-care (01) ==
LOC: RADMAMWWP 10:45
PROVIDERS: ATTEND Obstetrics & Gynecology
DX: Z08 Encounter for follow-up examination after completed treatment for malignant neoplasm (principal); Z85.3 Personal history of malignant neoplasm of breast
CPT/HCPCS: 77065; G0279; 77061

== ENCOUNTER → 2018-08-02 | Outpatient (CLI) | payer MEDICARE ==
[2018-08-02 18:49] LABS: LDL Cholesterol,Calculated 105.4 mg/dL (0.0-131.0); VLDL Calculation 17.6 mg/dL (5.00-40.00)
== END ==
LOC: LABWHC1 11:10
PROVIDERS: ATTEND Internal Medicine Cardiovascular Disease
DX: E78.5 Hyperlipidemia, unspecified (principal)
CPT/HCPCS: 36415; 80061; 84450; 84460

== ENCOUNTER → 2019-01-17 | Outpatient (CLI) | payer MEDICARE ==
--- NOTE | 2019-01-17 12:11 | MM ---
Reason for exam: follow-up at short interval from prior study. Last mammogram was performed 6 months ago. History: Patient is postmenopausal, has history of breast cancer at age 70, and history of other cancer. Family history of breast cancer in 2 aunts. Malignant MG pre op needle loc LT of the left breast, June 08, 2016. Lumpectomy of the left breast, June 08, 2016. Malignant US biopsy breast VAD LT of the left breast, May 28, 2016. Malignant US biopsy breast add'l VAD LT of the left breast, May 28, 2016. Radiation therapy, 2017. Took hormonal contraceptives for 10 years. Took antineoplastic for 1 year. Physical Findings: Nurse did not find any significant physical abnormalities on exam. MG 3D Diag Mammo W/Cad SHIN Bilateral CC and MLO view(s) were taken. Prior study comparison: July 13, 2018, left breast MG 3d diag mammo w/cad LT. January 10, 2018, bilateral MG 3d diag mammo w/cad SHIN. The breast tissue is heterogeneously dense. This may lower the sensitivity of mammography. No suspicious abnormality. Left biopsy marker. Post therapy change on the left. These results were verbally communicated with the patient and result sheet given to the patient on 01/17/19. ASSESSMENT: Benign, BI-RAD 2 RECOMMENDATION: Follow-up diagnostic mammogram of both breasts in 1 year.
== END | disposition home or self-care (01) ==
LOC: RADMAMWWP 10:52
PROVIDERS: ATTEND Radiology Radiation Oncology
DX: C50.512 Malignant neoplasm of lower-outer quadrant of left female breast (principal); Z17.0 Estrogen receptor positive status [ER+]; Z92.3 Personal history of irradiation
CPT/HCPCS: 77066; G0279; 77062

== ENCOUNTER → 2019-05-22 | Outpatient (CLI) | payer MEDICARE ==
[2019-05-22 14:15] VITALS: BP 125/85; PULSE 96; RESP 18; TEMP 98
--- NOTE | 2019-05-22 15:03 | P.HPOB ---
History of Present Illness H&P Date: 05/22/19 Chief Complaint: The patient is here for her routine gynecologic exam. This is a 73-year-old with an LMP of 1984. The patient is status post LYSSA and later BSO for benign reasons. The patient is without gynecologic complaints. Review of Systems Weight has been stable. She denies respiratory, cardiac and G.I. problems. She denies maltreatment or problems with falling. : she denies any significant problems with urinary leakage. Past Medical History Past Medical History: Cancer, Hyperlipidemia, Hypertension Additional Past Medical History / Comment(s): lt breast CA Stage 1A ER+ s/p lumpectomy and radiation therapy 2017, vertigo. 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 Previous LYSSA and later BSO. History of Any Multi-Drug Resistant Organisms: None Reported Past Surgical History: Breast Surgery, Section, Cholecystectomy, Hysterectomy Additional Past Surgical History / Comment(s): LYSSA 1984 and BSO in 1996. Left breast lumpectomy 2016. section 3. Multiple colonoscopies most recent 2014. Past Anesthesia/Blood Transfusion Reactions: Motion Sickness, Postoperative Nausea & Vomiting (PONV) Additional Past Anesthesia/Blood Transfusion Reaction / Comment(s): vertigo. no hx blood transfusion. Past Psychological History: No Psychological Hx Reported Smoking Status: Never smoker Past Alcohol Use History: Rare (5 per year) Past Drug Use History: None Reported Additional History: She has been since 1970 and is retired. She previously worked at [employer]. - Past Family History Mother Family Medical History: Myocardial Infarction ([place]) Additional Family Medical History / Comment(s): mother's 2 sisters had breast CA. Father Family Medical History: Liver Disease Additional Family Medical History / Comment(s): cirrhosis,heart problems Sister(s) Family Medical History: Cancer Additional Family Medical History / Comment(s): colon Medications and Allergies Home Medications Medication Instructions Recorded Confirmed Type Ergocalciferol [Vitamin D2 50,000 unit PO MO 06/04/16 05/22/19 History (DRISDOL)] Fexofenadine HCl [Thuy Allergy] 180 mg PO QAM 06/04/16 05/22/19 History L.acidoph,Paracasei, B.lactis 1 cap PO QAM 06/04/16 05/22/19 History [Probiotic] Lisinopril 5 mg PO QAM 06/04/16 05/22/19 History Red Yeast Rice 600 mg PO QAM 06/04/16 05/22/19 History Ubidecarenone [Co Q-10] 100 mg PO BID 06/04/16 05/22/19 History Magnesium Oxide [Mag-Ox] 400 mg PO HS 12/23/16 05/22/19 History Triamcinolone Acetonide [Nasacort] 1 spray EA NOSTRIL BID PRN 12/23/16 05/22/19 History Pitavastatin Calcium [Livalo] 1 mg PO HS 05/22/19 05/22/19 History Allergies Allergy/AdvReac Type Severity Reaction Status Date / Time Sulfa (Sulfonamide Allergy Dyspnea Verified 05/22/19 14:16 Antibiotics) Exam Vital Signs Temp Pulse Resp BP Pulse Ox 05/22/19 14:02 98.0 F 96 18 125/85 95 Intake and Output 05/21/19 05/22/19 05/22/19 22:59 06:59 14:59 Other: Weight 81.647 kg Height 5 feet 5 inches, weight 180 pounds, BMI 30.0. This is a well-developed well-nourished white female who is alert and oriented times 3 in no acute distress. HEENT: Within normal limits. NECK: Supple without mass or thyromegaly. CHEST AND LUNGS: Clear to auscultation. HEART: Regular rate and rhythm. BREASTS: Are without mass or discharge. There is slight dimpling and slight firmness at the area of her previous lumpectomy and radiation consistent with her prior treatment. AXILLARY EXAM: Negative for adenopathy. BACK: Negative for CVA tenderness. ABDOMEN: Soft, nontender, without palpable masses. PELVIC EXAM: External genitalia appears normal with mild to moderate atrophy. Vagina appears normal mild to moderate atrophy. There is no evidence of prolapse. Bimanual examination is negative for mass or tenderness. RECTAL EXAM: Rectovaginal exam is negative for mass or tenderness and is negative for occult blood. EXTREMITIES: Nontender. IMPRESSION: 1. 73-year-old menopausal female status post LYSSA and later BSO for benign reasons with normal gynecologic exam. 2. History of left breast cancer stage IA with no evidence of recurrence at this time. PLAN: 1. Pap smears have been discontinued. 2. Self breast awareness was discussed with the patient. 3. Diagnostic mammogram was done on 01/17/2019 and was benign. She will continue to do these yearly. 4. Osteoporosis prevention was discussed. I have stressed the importance of adequate calcium, vitamin D and regular exercise. Recommended amounts of calcium and vitamin D were also discussed. We will plan on repeating bone density testing in about 2 years since she had a normal one on 09/08/2016. 5. She states she does not get flu shots in the fall because of her past experience with flu shots. 6. She was advised to return in one year for her annual well woman exam.
== END | disposition home or self-care (01) ==
LOC: WWCWWP 13:53
PROVIDERS: ATTEND Obstetrics & Gynecology
DX: Z53.9 Procedure and treatment not carried out, unspecified reason (principal)

== ENCOUNTER → 2020-01-22 | Outpatient (CLI) | payer MEDICARE ==
--- NOTE | 2020-01-22 13:41 | MM ---
Reason for exam: additional evaluation requested from prior study. Last mammogram was performed 1 year ago. History: Patient is postmenopausal, has history of breast cancer at age 70, and history of other cancer. Family history of breast cancer in 2 aunts. Malignant MG pre op needle loc LT of the left breast, June 08, 2016. Lumpectomy of the left breast, June 08, 2016. Malignant US biopsy breast VAD LT of the left breast, May 28, 2016. Malignant US biopsy breast add'l VAD LT of the left breast, May 28, 2016. Radiation therapy, 2017. Took hormonal contraceptives for 10 years. Took antineoplastic for 1 year. Physical Findings: Nurse did not find any significant physical abnormalities on exam. MG 3D Diag Mammo W/Cad SHIN Bilateral CC and MLO view(s) were taken. XCCL view(s) were taken of the right breast. Prior study comparison: January 17, 2019, bilateral MG 3d diag mammo w/cad SHIN. July 13, 2018, left breast MG 3d diag mammo w/cad LT. The breast tissue is heterogeneously dense. This may lower the sensitivity of mammography. There is chronic nodularity in the right breast. Post surgical and post therapy changes left breast. Inferior central nodularity measures 7mm anterior to middle depth, seen on 3D images from 01/17/19 but not prior to that. These results were verbally communicated with the patient and result sheet given to the patient on 01/22/20. ASSESSMENT: Incomplete: need additional imaging evaluation, BI-RAD 0 RECOMMENDATION: Ultrasound of the left breast.
--- NOTE | 2020-01-22 13:47 | USB ---
Reason for exam: additional evaluation requested from abnormal screening. History: Patient is postmenopausal, has history of breast cancer at age 70, and history of other cancer. Family history of breast cancer in 2 aunts. Malignant MG pre op needle loc LT of the left breast, June 08, 2016. Lumpectomy of the left breast, June 08, 2016. Malignant US biopsy breast VAD LT of the left breast, May 28, 2016. Malignant US biopsy breast add'l VAD LT of the left breast, May 28, 2016. Radiation therapy, 2017. Took hormonal contraceptives for 10 years. Took antineoplastic for 1 year. US Breast Limited LT Left limited breast ultrasound including focal area of concern, retroareolar and axilla demonstrates a 9 x 5 x 7mm lobular, hypoechoic lesion with septations at 5 o'clock, likely corresponds to the mammographic finding. Biopsy recommended. These results were verbally communicated with the patient and result sheet given to the patient on 01/22/20. ASSESSMENT: Suspicious, BI-RAD 4 RECOMMENDATION: Ultrasound core biopsy of the left breast. Called Dr. Aldridge's office with mammographic findings and has scheduled an appointment for the patient for 02/14/20 at 2:[address] Stapleton. Biopsy scheduled for 02/15/20 at 10:30. PRELIMINARY REPORT CALLED AND FAXED TO DR. STAPLETON ON 01/22/20.
== END | disposition home or self-care (01) ==
LOC: RADMAMWWP 09:34
PROVIDERS: ATTEND Radiology Radiation Oncology
DX: R92.8 Other abnormal and inconclusive findings on diagnostic imaging of breast (principal); C50.512 Malignant neoplasm of lower-outer quadrant of left female breast; Z92.3 Personal history of irradiation; Z17.0 Estrogen receptor positive status [ER+]
CPT/HCPCS: 77066; 76642; G0279; 77062

== ENCOUNTER → 2020-02-14 | Outpatient (CLI) | payer MEDICARE ==
[2020-02-14 14:08] VITALS: BP 144/88; PULSE 81; RESP 16; TEMP 98.3
--- NOTE | 2020-02-14 14:27 | P.GSHP ---
History of Present Illness H&P Date: 02/14/20 Chief Complaint: abnormal ultrasound left breast/STage 1A left breast cancer [id number] ER+Pr-Her2- moderately differentiated invasive ductal carcinoma. Emilie is a 74 year old white female seen in consultation for Dr. Elder she is status post left breast lumpectomy and sentinel node biopsy in May 2016. She had a Eve device placed for radiation and radiation was finished on 06/28/2016. She also was seen by medical oncology and an Oncotype test was done and she did not need any chemotherapy. She did have anti-hormonal therapy for approximately one year however she was having side effects and so stopped taking these. At this time the patient does not feel any lumps masses or nodules in her breasts for which she is concerned. She is not complaining of any recent nipple discharge or skin changes. She is not complaining of any recent trauma or infection of the breast. She had a bilateral mammogram performed on this was felt to be incomplete and additional imaging was recommended with an ultrasound of the left breast. Ultrasound was performed which revealed a 9 x 7 mm lobular HycoClear hypoechoic lesion with septations for which biopsy was recommended. Ultrasound core biopsy of the left breast recommended. Family History: maternal aunt: 2 with breast cancer Hormonal history: Menarche: 15 , breast fed: none, age at first : 18 menopause: partial hysterectomy endometriosis and myometirosis at 39; bilateral oophrectomies at 54 BCP: 10 years hormones: none Surgical history: 1. 3 C-sections 2. Tubal ligation 3. Hysterectomy and later completion bilateral oophorectomy 4. lumpectomy left breast/sentinel node biopsy Medical history: 1. HTN 2. High cholesterol Social History: Smoking: Negative Alcohol: Negative Drugs: Negative - Constitutional Constitutional: Denies chills, Denies fever - EENT Eyes: denies blurred vision, denies pain Ears: deny: decreased hearing, tinnitus Ears, nose, mouth and throat: Denies headache, Denies sore throat - Breasts Breasts: bilateral: as per HPI - Cardiovascular Cardiovascular: Reports high blood pressure - Respiratory Respiratory: Denies cough, Denies 7 - Gastrointestinal Comment: lactose intolerant Gastrointestinal: Denies abdominal pain, Denies diarrhea, Denies nausea, Denies vomiting - Genitourinary (Female) Genitourinary: Denies dysuria, Denies hematuria - Menstruation Menstruation: Reports post hysterectomy - Musculoskeletal Musculoskeletal: Reports myalgias - Integumentary Integumentary: Reports rash, Denies pruritus - Neurological Neurological: Denies numbness, Denies weakness - Psychiatric Psychiatric: Denies anxiety, Denies depression - Endocrine Comment: hypothyroid - Hematologic/Lymphatic Comment: none - Allergic/Immunologic Allergic/Immunologic: Reports seasonal allergies Past Medical History Past Medical History: Cancer, Hyperlipidemia, Hypertension Additional Past Medical History / Comment(s): lt breast CA Stage 1A ER+ s/p lumpectomy and radiation therapy 2017, vertigo. 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 Previous LYSSA and later BSO. History of Any Multi-Drug Resistant Organisms: None Reported Past Surgical History: Breast Surgery, Section, Cholecystectomy, Hysterectomy Additional Past Surgical History / Comment(s): LYSSA 1984 and BSO in 1996. Left breast lumpectomy 2016. section 3. Multiple colonoscopies most recent 2014. Past Anesthesia/Blood Transfusion Reactions: Motion Sickness, Postoperative Nausea & Vomiting (PONV) Additional Past Anesthesia/Blood Transfusion Reaction / Comment(s): vertigo. no hx blood transfusion. Past Psychological History: No Psychological Hx Reported Smoking Status: Never smoker Past Alcohol Use History: Rare Past Drug Use History: None Reported - Past Family History Mother Family Medical History: Myocardial Infarction ([place]) Additional Family Medical History / Comment(s): mother's 2 sisters had breast CA. Father Family Medical History: Liver Disease Additional Family Medical History / Comment(s): cirrhosis,heart problems Sister(s) Family Medical History: Cancer Additional Family Medical History / Comment(s): colon Medications and Allergies Home Medications Medication Instructions Recorded Confirmed Type Ergocalciferol [Vitamin D2 50,000 unit PO MO 06/04/16 02/14/20 History (DRISDOL)] Fexofenadine HCl [Thuy Allergy] 180 mg PO QAM 06/04/16 02/14/20 History Red Yeast Rice 600 mg PO QAM 06/04/16 02/14/20 History Ubidecarenone [Co Q-10] 100 mg PO BID 06/04/16 02/14/20 History lisinopriL [Lisinopril] 5 mg PO QAM 06/04/16 02/14/20 History Magnesium Oxide [Mag-Ox] 250 mg PO HS 12/23/16 02/14/20 History L.acidoph,Paracasei, B.lactis DAILY 01/24/20 History [Probiotic] Rosuvastatin [Crestor] 5 mg PO DAILY 01/24/20 02/14/20 History Allergies Allergy/AdvReac Type Severity Reaction Status Date / Time Sulfa (Sulfonamide Allergy Dyspnea Verified 01/24/20 12:10 Antibiotics) Surgical - Exam BMI 29.1 - General well developed, well nourished, no distress - Eyes normal ocular movement - ENT no hearing loss, no congestion - Neck no masses, trachea midline - Respiratory normal respiratory effort, clear to auscultation - Cardiovascular Rhythm: regular Heart Sounds: normal: S1, S2 - Abdomen Abdomen: soft, non tender, no guarding, no rigid, no rebound - Integumentary no rash, no abnormal pigmentation - Musculoskeletal normal gait, normal posture - Psychiatric oriented to time, oriented to person, oriented to place, speech is normal, memory intact Breast exam: BRA: 40DD inspection: Grade 2 ptosis bilaterally Palpation: Right breast: Multi-positional exam fibrocystic changes, no dominant masses or nodules of concern Right axilla: No adenopathy of concern Left breast: Well-healed scar from prior lumpectomy, postsurgical and radiation changes, no dominant masses or nodules of concern Left axilla: No adenopathy of concern were noted scar from prior sentinel node biopsy Results Mammogram and ultrasound results reviewed Assessment and Plan Assessment: Impression: 1. HTN 2. High cholesterol 3. Prior left breast stage I a invasive ductal carcinoma, radiographic abnormality of the left breast Plan: 1. Ultrasound-guided core biopsy left breast radiographic abnormality 2. Follow-up after ultrasound-guided core biopsy The risk and benefits of the procedure were discussed with the patient and she wishes to proceed. Cc: Dr. Elder encounter 30 minutes, > 50% of time in planning and counselling
== END | disposition home or self-care (01) ==
LOC: WWCWWP 13:47
PROVIDERS: ATTEND Surgery
DX: Z53.9 Procedure and treatment not carried out, unspecified reason (principal)

== ENCOUNTER → 2020-02-15 | Day surgery (SDC) | payer MEDICARE ==
[2020-02-15 09:58] VITALS: RESP 16
[2020-02-15 11:01] VITALS: BP 140/75; PULSE 90; TEMP 98.2
--- NOTE | 2020-02-15 11:26 | USB ---
EXAMINATION TYPE: US biopsy breast VAD LT, MG diagnostic mammo LT wo CAD DATE OF EXAM: 02/15/2020 CLINICAL HISTORY: R92.8 Abnormal Mammogram. Abnormal ultrasound. TECHNIQUE: Ultrasound guided core biopsy of left breast with clip placement and follow-up diagnostic two-view mammogram. COMPARISON: Left breast mammogram and ultrasound January 22, 2020 and older studies FINDINGS: The procedure of ultrasound guided core biopsy was explained to the patient. Benefits, alternatives, and risks were discussed. An informed consent was then obtained. The patient was placed in supine positioning for imaging and for the procedure. Preprocedure ultrasound redemonstrates 5:00 position to adjacent small hypoechoic and anechoic lesions with some surrounding wall or slight hyperechoic tissue zone A left breast. The overlying skin was prepped and draped in usual sterile fashion. Lidocaine is used as anesthetic into the skin and subcutaneous tissue up to area of concern in the left breast. Under ultrasound guidance, fine-needle aspiration was unsuccessful with the 18- gauge needle. Following this under ultrasound guidance, a vacuum assisted biopsy gun device was used to obtain 2 core samples. Lesion is significantly smaller in size after sampling. Following this, a biopsy clip was left in lesion. The patient tolerated the procedure well without any immediate complication. The patient was kept in the radiology department for short stay after the procedure and then discharged home in stable condition. Post procedure mammogram shows successful deployment of clip corresponding to the area of abnormality on recent mammogram. IMPRESSION: Successful, uncomplicated ultrasound guided core biopsy of area of concern in the left breast, full pathology results to follow. Low index of suspicion noted at time of the procedure. Pathology Results: Benign LEFT BREAST, 5:00, ULTRASOUND GUIDED CORE BIOPSY: Benign lymph node. Recommendation Follow up ultrasound of the left breast in 6 months. JIMMYD
== END ==
LOC: RADUSWWP 09:38
PROVIDERS: ATTEND Surgery
DX: N64.89 Other specified disorders of breast (principal)
CPT/HCPCS: 88305; 77065; 19083; A4648; J2001

== ENCOUNTER → 2020-02-22 | Outpatient (CLI) | payer MEDICARE ==
[2020-02-22 11:51] VITALS: BP 145/84; PULSE 79; RESP 18; TEMP 98.1
--- NOTE | 2020-02-22 12:20 | P.PN ---
Subjective Progress Note Date: 02/22/20 Principal diagnosis: left breast cancer surveillance [id number] ER+Pr-Her2- moderately differentiated invasive ductal carcinomaHemant Phan is a 74 year old white female seen in consultation for Dr. Elder she is status post left breast lumpectomy and sentinel node biopsy in May 2016. She had a Eve device placed for radiation and radiation was finished on 06/28/2016. She also was seen by medical oncology and an Oncotype test was done and she did not need any chemotherapy. She did have anti-hormonal therapy for approximately one year however she was having side effects and so stopped taking these. At this time the patient does not feel any lumps masses or nodules in her breasts for which she is concerned. She is not complaining of any recent nipple discharge or skin changes. She is not complaining of any recent trauma or infection of the breast. She had a bilateral mammogram performed on this was felt to be incomplete and additional imaging was recommended with an ultrasound of the left breast. Ultrasound was performed which revealed a 9 x 7 mm lobular hypoechoic lesion with septations for which biopsy was recommended. Ultrasound core biopsy of the left breast recommended. She had an ultrasound core biopsy on 02-15-20 which was a benign lymph node. She tolerated the procedure without any complications. Family History: maternal aunt: 2 with breast cancer Hormonal history: Menarche: 15 , breast fed: none, age at first : 18 menopause: partial hysterectomy endometriosis and myometirosis at 39; bilateral oophrectomies at 54 BCP: 10 years hormones: none Surgical history: 1. 3 C-sections 2. Tubal ligation 3. Hysterectomy and later completion bilateral oophorectomy 4. lumpectomy left breast/sentinel node biopsy Medical history: 1. HTN 2. High cholesterol Social History: Smoking: Negative Alcohol: Negative Drugs: Negative - Constitutional Constitutional: Denies chills, Denies fever - EENT Eyes: denies blurred vision, denies pain Ears: deny: decreased hearing, tinnitus Ears, nose, mouth and throat: Denies headache, Denies sore throat - Breasts Breasts: bilateral: as per HPI - Cardiovascular Cardiovascular: Reports high blood pressure - Respiratory Respiratory: Denies cough, - Gastrointestinal Comment: lactose intolerant Gastrointestinal: Denies abdominal pain, Denies diarrhea, Denies nausea, Denies vomiting - Genitourinary (Female) Genitourinary: Denies dysuria, Denies hematuria - Menstruation Menstruation: Reports post hysterectomy - Musculoskeletal Musculoskeletal: Reports myalgias - Integumentary Integumentary: Reports rash, Denies pruritus - Neurological Neurological: Denies numbness, Denies weakness - Psychiatric Psychiatric: Denies anxiety, Denies depression - Endocrine Comment: hypothyroid - Hematologic/Lymphatic Comment: none - Allergic/Immunologic Allergic/Immunologic: Reports seasonal allergies Objective - Vital Signs Vital signs: Vital Signs Temp 98.1 F 02/22/20 11:49 Pulse 79 02/22/20 11:49 Resp 18 02/22/20 11:49 BP 145/84 02/22/20 11:49 Pulse Ox 99 02/22/20 11:49 Intake & Output 02/21/20 02/22/20 02/22/20 18:59 06:59 18:59 Weight 78.018 kg - Exam BMI 28.6 - Constitutional Constitutional Comment(s): BMI 28.6 General appearance: Present: average body habitus - EENT Eyes: Present: EOMI ENT: Present: hearing grossly normal - Respiratory Respiratory: bilateral: CTA - Cardiovascular Rhythm: regular Heart sounds: normal: S1, S2 - Gastrointestinal General gastrointestinal: Present: normal bowel sounds, soft - Musculoskeletal Musculoskeletal: Present: gait normal - Psychiatric Psychiatric: Present: A&O x's 3, appropriate affect, intact judgment & insight - Additional findings Additional findings: Bresat exam: BRA 40DD inspection: grade 2 ptosis bilateral palpation: Examination [id number] Right breast: No dominant masses or nodules of concern Right axilla: No adenopathy of concern Left breast: No dominant masses or nodules of concern, postoperative changes Left axilla: No adenopathy of concern The patient does have some asymmetry of her breast related to the left breast scarring and radiation changes. Additionally she has some shoulder notching secondary to the heaviness of her breast and has had back pain for which she must seek rn wound care. Assessment and Plan Assessment: Impression: 1. HTN 2. High cholesterol 3. Patient status post left breast lumpectomy and radiation therapy for stage IA left breast cancer for some asymmetry of the breast related to this 4. Back pain 5. Shoulder notching secondary to have a breast 6. Recent ultrasound core biopsy of the left breast benign lymph node Plan: 1. Repeat physician exam in 6 months 2. Bilateral mammogram in 1 year, with left breast mammogram and ultrasound in 6 months 3. Consider reduction mammoplasty bilaterally will see plastic surgery Cc: Dr. Elder We have discussed reduction mammoplasty via Soto pattern method. I have drawn some skin lines and talked to her about what the surgery would entail. She is going to have an appointment with plastic surgery and will make a final decision following this. My greatest concern regarding this is the postop and radiation changes in the left breast. She will consult with Dr. Zaidi regarding this. encounter 25 minutes, > 50% of time in planning and counselling
== END | disposition home or self-care (01) ==
LOC: WWCWWP 11:33
PROVIDERS: ATTEND Surgery
DX: Z53.9 Procedure and treatment not carried out, unspecified reason (principal)

== ENCOUNTER → 2020-07-21 | Outpatient (CLI) | payer MEDICARE ==
--- NOTE | 2020-07-21 13:54 | MM ---
Reason for exam: follow-up at short interval from prior study. Last mammogram was performed 5 months ago. History: Patient is postmenopausal, has history of breast cancer at age 70, and history of other cancer. Family history of breast cancer in 2 aunts. Benign US biopsy breast VAD LT of the left breast, February 15, 2020. Malignant MG pre op needle loc LT of the left breast, June 08, 2016. Lumpectomy of the left breast, June 08, 2016. Malignant US biopsy breast VAD LT of the left breast, May 28, 2016. Malignant US biopsy breast add'l VAD LT of the left breast, May 28, 2016. Radiation therapy, 2017. Took hormonal contraceptives for 10 years. Took antineoplastic for 1 year. Physical Findings: Nurse did not find any significant physical abnormalities on exam. MG 3D Diag Mammo W/Cad LT CC, MLO, and XCCL view(s) were taken of the left breast. Prior study comparison: February 15, 2020, left breast MG diagnostic mammo LT wo CAD. January 22, 2020, bilateral MG 3d diag mammo w/cad SHIN. The breast tissue is heterogeneously dense. This may lower the sensitivity of mammography. Previous mammotome biopsy in the left breast. Stable post surgical and post therapy changes left breast. These results were verbally communicated with the patient and result sheet given to the patient on 07/21/20. ASSESSMENT: Incomplete: need additional imaging evaluation, BI-RAD 0 RECOMMENDATION: Ultrasound of the left breast.
--- NOTE | 2020-07-21 13:56 | USB ---
Reason for exam: additional evaluation requested from abnormal screening. History: Patient is postmenopausal, has history of breast cancer at age 70, and history of other cancer. Family history of breast cancer in 2 aunts. Benign US biopsy breast VAD LT of the left breast, February 15, 2020. Malignant MG pre op needle loc LT of the left breast, June 08, 2016. Lumpectomy of the left breast, June 08, 2016. Malignant US biopsy breast VAD LT of the left breast, May 28, 2016. Malignant US biopsy breast add'l VAD LT of the left breast, May 28, 2016. Radiation therapy, 2017. Took hormonal contraceptives for 10 years. Took antineoplastic for 1 year. US Breast Limited LT Left limited breast ultrasound including focal area of concern, retroareolar and axilla demonstrates a 0.3 x 0.7 x 0.4cm cystic lesion at 5 o'clock, unable too clip. Scanned 3-6 o'clock. These results were verbally communicated with the patient and result sheet given to the patient on 07/21/20. ASSESSMENT: Benign, BI-RAD 2 RECOMMENDATION: Follow-up diagnostic mammogram of both breasts in 6 months. Back on schedule.
== END ==
LOC: RADMAMWWP 12:38
PROVIDERS: ATTEND Surgery
DX: N60.02 Solitary cyst of left breast (principal); Z85.3 Personal history of malignant neoplasm of breast; Z80.3 Family history of malignant neoplasm of breast; Z78.0 Asymptomatic menopausal state
CPT/HCPCS: 77065; 76642; G0279; 77061

== ENCOUNTER → 2020-07-24 | Outpatient (CLI) | payer MEDICARE ==
[2020-07-24 13:47] VITALS: BP 159/107; PULSE 78; RESP 18; TEMP 98.4
--- NOTE | 2020-07-24 14:54 | P.PN ---
Subjective Progress Note Date: 07/24/20 Principal diagnosis: left breast cancer surveillance stage IA invasive lobular cancer left breast cancer surveillance [id number]+[id number]- moderately differentiated invasive ductal carcinomaHemant Phan is a 74 year old white female seen in consultation for Dr. Elder she is status post left breast lumpectomy and sentinel node biopsy in May 2016. She had a Eve device placed for radiation and radiation was finished on 06/28/2016. She also was seen by medical oncology and an Oncotype test was done and she did not need any chemotherapy. She did have anti-hormonal therapy for approximately one year however she was having side effects and so stopped taking these. At this time the patient does not feel any lumps masses or nodules in her breasts for which she is concerned. She is not complaining of any recent nipple discharge or skin changes. She is not complaining of any recent trauma or infection of the breast. She had a bilateral mammogram performed on this was felt to be incomplete and additional imaging was recommended with an ultrasound of the left breast. Ultrasound was performed which revealed a 9 x 7 mm lobular hypoechoic lesion with septations for which biopsy was recommended. Ultrasound core biopsy of the left breast recommended. She had an ultrasound core biopsy on 02-15-20 which was a benign lymph node. She tolerated the procedure without any complications. Radiation oncology note from Dr. Aldridge reviewed. [place] [id number] this was felt to be incomplete and an ultrasound was performed ultrasound revealed a cystic lesion at 5:00 this was felt to be benign BIRADS 2 bilateral mammogram in 6 months time was recommended. Family History: maternal aunt: 2 with breast cancer Hormonal history: Menarche: 15 , breast fed: none, age at first : 18 menopause: partial hysterectomy endometriosis and myometirosis at 39; bilateral oophrectomies at 54 BCP: 10 years hormones: none Surgical history: 1. 3 C-sections 2. Tubal ligation 3. Hysterectomy and later completion bilateral oophorectomy 4. lumpectomy left breast/sentinel node biopsy Medical history: 1. HTN 2. High cholesterol Social History: Smoking: Negative Alcohol: Negative Drugs: Negative - Constitutional Constitutional: Denies chills, Denies fever - EENT Eyes: denies blurred vision, denies pain Ears: deny: decreased hearing, tinnitus Ears, nose, mouth and throat: Denies headache, Denies sore throat - Breasts Breasts: bilateral: as per HPI - Cardiovascular Cardiovascular: Reports high blood pressure - Respiratory Respiratory: Denies cough, - Gastrointestinal Comment: lactose intolerant Gastrointestinal: Denies abdominal pain, Denies diarrhea, Denies nausea, Denies vomiting - Genitourinary (Female) Genitourinary: Denies dysuria, Denies hematuria - Menstruation Menstruation: Reports post hysterectomy - Musculoskeletal Musculoskeletal: Reports myalgias - Integumentary Integumentary: Reports rash, Denies pruritus - Neurological Neurological: Denies numbness, Denies weakness - Psychiatric Psychiatric: Denies anxiety, Denies depression - Endocrine Comment: hypothyroid - Hematologic/Lymphatic Comment: none - Allergic/Immunologic Allergic/Immunologic: Reports seasonal allergies Objective - Vital Signs Vital signs: Vital Signs Temp 98.4 F 07/24/20 13:43 Pulse 78 07/24/20 13:43 Resp 18 07/24/20 13:43 BP 159/107 07/24/20 13:43 Pulse Ox 98 07/24/20 13:43 Intake & Output 07/23/20 07/24/20 07/24/20 18:59 06:59 18:59 Weight 79.379 kg - Exam BMI 29.1 - Constitutional General appearance: Present: average body habitus - EENT Eyes: Present: EOMI ENT: Present: hearing grossly normal - Neck Neck: Present: normal ROM - Respiratory Respiratory: bilateral: CTA - Cardiovascular Rhythm: regular Heart sounds: normal: S1, S2 - Integumentary Integumentary: Present: normal turgor - Musculoskeletal Musculoskeletal: Present: gait normal - Psychiatric Psychiatric: Present: A&O x's 3, appropriate affect, intact judgment & insight - Additional findings Additional findings: Breast Exam: BRA: 40DD inspection: Bilateral grade 2 ptosis Palpation: Right breast: Multiple positional exam fibrocystic changes, no dominant masses or nodules of concern Right axilla: No adenopathy of concern Left breast: Fibrocystic changes, increased induration lower outer quadrant position consistent with area of prior surgery no dominant masses or nodules of concern no evidence of recurrent cancer Left axilla: No adenopathy of concern Assessment and Plan Assessment: Impression: 1. Surveillance left breast invasive ductal carcinoma stage IA no evidence of recurrent disease 2. Left breast mammogram/follow-up in 6 months bilateral mammogram 3. Fibrocystic breast changes 4. Hypertension 5. High cholesterol 6. Patient finish course of radiation therapy 7. Patient opted not to take anti-hormonal therapy she tried this and was symptomatic with muscle aches Plan: 1. Bilateral mammogram in physician exam in [address] Elder
== END ==
LOC: WWCWWP 13:30
PROVIDERS: ATTEND Surgery
DX: C50.912 Malignant neoplasm of unspecified site of left female breast (principal); I10 Essential (primary) hypertension; E78.00 Pure hypercholesterolemia, unspecified; N60.11 Diffuse cystic mastopathy of right breast; N60.12 Diffuse cystic mastopathy of left breast

== ENCOUNTER → 2020-10-28 | Outpatient (CLI) | payer MEDICARE ==
--- NOTE | 2020-10-28 11:25 | CT ---
EXAMINATION TYPE: CT abdomen pelvis wo con DATE OF EXAM: 10/28/2020 COMPARISON: None HISTORY: Lower pelvic pain CT DLP: 653.0 mGycm Examination of the solid and hollow viscera is limited given the lack of contrast. FINDINGS: LUNG BASES: Nonspecific calcified and noncalcified nodules at the lung bases. No evidence for infiltr ate. LIVER/GB: The gallbladder is surgically absent. No space-occupying hepatic lesion. PANCREAS: No pancreatic mass identified. No inflammatory process seen. SPLEEN: No evidence for splenomegaly. No intrasplenic lesions seen. ADRENALS: No adrenal nodules identified. No evidence for thickening. KIDNEYS: Left-sided parapelvic renal cysts are noted. No nephrolithiasis. No hydronephrosis. BOWEL: Nonvisualization of the appendix. No inflammatory process seen. No evidence of bowel obstructi on. No inflammatory process. Sigmoid diverticulosis without diverticulitis. Lymph nodes: No evidence for adenopathy greater than 1 cm. Abdominal aorta: Atheromatous changes seen. No evidence for aneurysm. Genital organs: Hysterectomy changes noted. Other: No significant abnormality. IMPRESSION: 1. No acute process identified to account for the patient's symptoms. 2. Parapelvic left renal cyst. 3. Calcified and noncalcified nodules at the lung bases.
== END | disposition home or self-care (01) ==
LOC: RADCTMAIN 10:24
PROVIDERS: ATTEND Family Medicine
DX: N28.1 Cyst of kidney, acquired (principal)
CPT/HCPCS: 74176

== ENCOUNTER → 2020-12-19 | Outpatient (CLI) | payer MEDICARE ==
--- NOTE | 2020-12-20 14:24 | CT ---
EXAMINATION TYPE: CT chest wo con DATE OF EXAM: 12/19/2020 COMPARISON: Correlation CT 06/14/[address] abdomen and pelvis 10/28/2020 HISTORY: 74-year-old female R91.8, H/O PULMONARY NODULE TECHNIQUE: Contiguous axial scanning of the chest without IV contrast. Coronal and sagittal reconstru ctions performed. CT DLP: 401.1 mGycm Automated exposure control for dose reduction was used. FINDINGS: Postsurgical posttreatment change along the left breast. Heart normal size without pericardial effusi on. Aorta normal caliber with conventional branching anatomy. No thoracic lymphadenopathy by CT size criteria. 4 mm peripheral right upper lobe pulmonary nodule, axial image 19. 5 mm peripheral right apical pulmonary nodule, axial image 10. 4 mm subpleural pulmonary nodule posterior right upper lobe, axial image 14. 3 mm lateral right midlung pulmonary nodule, axial image 33. Calcified granuloma posterior left base. 4 mm peripheral left lower lobe pulmonary nodule, axial image 44. Adjacent 4 mm pulmonary nodule, axial image 41. The are largely stable from 2017. Adjacent 5 mm pulmonary nodule posterior left lower lobe, axial image 36. This nodule appears more pr onounced from 2016 but stable from 10/28/2020. Additional follow-up can be performed. No consolidation or pleural effusion. Visualized upper abdomen shows known parapelvic cysts of the left kidney and cholecystectomy clips. Bones: DISH within the lower thoracic spine. IMPRESSION: SCATTERED PULMONARY NODULES MEASURING UP TO 5 MM. THESE ARE ALL LARGELY STABLE FROM 2017, EXCEPT FOR A 5 MM POSTERIOR LEFT BASILAR PULMONARY NODULE THAT IS MORE PRONOUNCED. 1.5 MONTHS OF STABILITY HUANG RED TO 10/28/2020 FAVORS A BENIGN ETIOLOGY. ADDITIONAL ONE-YEAR FOLLOW-UP RECOMMENDED TO REASSESS.
== END | disposition home or self-care (01) ==
LOC: RADCTMAIN 17:37
PROVIDERS: ATTEND Family Medicine
DX: R91.8 Other nonspecific abnormal finding of lung field (principal)
CPT/HCPCS: 71250

== ENCOUNTER → 2021-01-26 | Outpatient (CLI) | payer MEDICARE ==
--- NOTE | 2021-01-26 14:14 | MM ---
Reason for exam: follow-up at short interval from prior study. Last mammogram was performed 6 months ago. History: Patient is postmenopausal, has history of breast cancer at age 70, and history of other cancer. Family history of breast cancer in 2 maternal aunts at age 50. Benign US biopsy breast VAD LT of the left breast, February 15, 2020. Malignant MG pre op needle loc LT of the left breast, June 08, 2016. Lumpectomy of the left breast, June 08, 2016. Malignant US biopsy breast VAD LT of the left breast, May 28, 2016. Malignant US biopsy breast add'l VAD LT of the left breast, May 28, 2016. Radiation therapy, 2017. Took hormonal contraceptives for 10 years. Took antineoplastic for 6 months. Physical Findings: Nurse did not find any significant physical abnormalities on exam. MG 3D Diag Mammo W/Cad SHIN Bilateral CC and MLO view(s) were taken. Prior study comparison: July 21, 2020, left breast MG 3d diag mammo w/cad LT. February 15, 2020, left breast MG diagnostic mammo LT wo CAD. The breast tissue is heterogeneously dense. This may lower the sensitivity of mammography. Stable benign calcifications. Multiple previous ultrasound biopsies in the left breast. Post operative scars in the left breast is stable. No significant new findings when compared with previous films. These results were verbally communicated with the patient and result sheet given to the patient on 01/26/21. ASSESSMENT: Benign, BI-RAD 2 RECOMMENDATION: Follow-up diagnostic mammogram of both breasts in 1 year.
== END | disposition home or self-care (01) ==
LOC: RADMAMWWP 13:04
PROVIDERS: ATTEND Radiology Radiation Oncology
DX: R92.1 Mammographic calcification found on diagnostic imaging of breast (principal); Z78.0 Asymptomatic menopausal state; Z85.3 Personal history of malignant neoplasm of breast; Z80.3 Family history of malignant neoplasm of breast
CPT/HCPCS: 77066; G0279; 77062

== ENCOUNTER → 2021-01-30 | Outpatient (CLI) | payer MEDICARE ==
[2021-01-30 14:10] VITALS: BP 125/84; PULSE 83; RESP 16; TEMP 98.4
--- NOTE | 2021-01-30 14:35 | P.PN ---
Subjective Progress Note Date: 01/30/21 Principal diagnosis: stage IA invasive lobular left breast cancer left breast cancer surveillance stage IA invasive lobular cancer [id number] ER+Pr-Her2- moderately differentiated invasive ductal carcinomaHemant Phan is a 75 year old white female seen in consultation for Dr. Elder she is status post left breast lumpectomy and sentinel node biopsy in May 2016. She had a Eve device placed for radiation and radiation was finished on 06/28/2016. She also was seen by medical oncology and an Oncotype test was done and she did not need any chemotherapy. She did have anti-hormonal therapy for approximately one year however she was having side effects and so stopped taking these. She had a bilateral mammogram performed on this was felt to be incomplete and additional imaging was recommended with an ultrasound of the left breast. Ultrasound was performed which revealed a 9 x 7 mm lobular hypoechoic lesion with septations for which biopsy was recommended. Ultrasound core biopsy of the left breast recommended. She had an ultrasound core biopsy on 02-15-20 which was a benign lymph node. She tolerated the procedure without any complications. She had a bilateral mammogram on 01-26-21 which was benign BIRAD 2. She is not complaining of lumps, masses, or nodules in either breast. Radiation oncology note from Dr. Aldridge reviewed. She had a [place] [address] this was felt to be incomplete and an ultrasound was performed ultrasound revealed a cystic lesion at 5:00 this was felt to be benign BIRADS 2 bilateral mammogram in 6 months time was recommended. Patient had a computed tomography scan of the chest ordered by Dr. Elder in response to a computed tomography scan of the abdomen which showed a small lesion in the lung. On the CT of the chest there appears to be stable nodularity for which the patient has seen Dr. Maza in the past. Family History: maternal aunt: 2 with breast cancer Hormonal history: Menarche: 15 , breast fed: none, age at first : 18 menopause: partial hysterectomy endometriosis and myometirosis at 39; bilateral oophrectomies at 54 BCP: 10 years hormones: none Surgical history: 1. 3 C-sections 2. Tubal ligation 3. Hysterectomy and later completion bilateral oophorectomy 4. lumpectomy left breast/sentinel node biopsy Medical history: 1. HTN 2. High cholesterol Social History: Smoking: Negative Alcohol: Negative Drugs: Negative - Constitutional Constitutional: Denies chills, Denies fever - EENT Eyes: denies blurred vision, denies pain Ears: deny: decreased hearing, tinnitus Ears, nose, mouth and throat: Denies headache, Denies sore throat - Breasts Breasts: bilateral: as per HPI - Cardiovascular Cardiovascular: Reports high blood pressure - Respiratory Respiratory: Denies cough, - Gastrointestinal Comment: lactose intolerant Gastrointestinal: Denies abdominal pain, Denies diarrhea, Denies nausea, Denies vomiting - Genitourinary (Female) Genitourinary: Denies dysuria, Denies hematuria - Menstruation Menstruation: Reports post hysterectomy - Musculoskeletal Musculoskeletal: Reports myalgias - Integumentary Integumentary: Reports rash, Denies pruritus - Neurological Neurological: Denies numbness, Denies weakness - Psychiatric Psychiatric: Denies anxiety, Denies depression - Endocrine Comment: hypothyroid - Hematologic/Lymphatic Comment: none - Allergic/Immunologic Allergic/Immunologic: Reports seasonal allergies Objective - Vital Signs Vital signs: Vital Signs Temp 98.4 F 01/30/21 14:07 Pulse 83 01/30/21 14:07 Resp 16 01/30/21 14:07 BP 125/84 01/30/21 14:07 Pulse Ox 98 01/30/21 14:07 Intake & Output 01/29/21 01/30/21 01/30/21 18:59 06:59 18:59 Weight 79.379 kg - Exam BMI 29.1 - Constitutional General appearance: Present: cooperative - EENT Eyes: Present: EOMI ENT: Present: hearing grossly normal - Neck Neck: Present: normal ROM - Respiratory Respiratory: bilateral: CTA - Cardiovascular Rhythm: regular Heart sounds: normal: S1, S2 - Gastrointestinal General gastrointestinal: Present: soft - Integumentary Integumentary: Present: normal turgor - Musculoskeletal Musculoskeletal: Present: gait normal - Psychiatric Psychiatric: Present: A&O x's 3, appropriate affect, intact judgment & insight - Additional findings Additional findings: Breast Exam: BRA: 40D inspection: Mild asymmetry related to prior left breast lumpectomy, bilateral grade 2 ptosis Palpation: Right breast: Multiple positional exam fibrocystic changes no dominant masses or nodules of concern Right axilla: No adenopathy of concern Left breast: Post operative changes no dominant masses or nodules of concern Left axilla: No adenopathy of concern Assessment and Plan Assessment: Impression: 1. Status post left breast lumpectomy, sentinel lobe biopsy, Eve procedure, used antihormone therapy for a short time 2. nodule being followed chest CT Plan: 1. follow up exam in 6 months 2. follow up results of CT with Dr. Elder CC: Dr. Elder
== END ==
LOC: WWCWWP 13:49
PROVIDERS: ATTEND Surgery
DX: Z08 Encounter for follow-up examination after completed treatment for malignant neoplasm (principal); I10 Essential (primary) hypertension; E78.00 Pure hypercholesterolemia, unspecified; Z98.890 Other specified postprocedural states; Z79.890 Hormone replacement therapy; Z88.2 Allergy status to sulfonamides

== ENCOUNTER → 2021-07-31 | Outpatient (CLI) | payer MEDICARE ==
[2021-07-31 15:43] VITALS: BP 160/101; PULSE 98; RESP 18; TEMP 98.1
--- NOTE | 2021-07-31 16:22 | P.PN ---
Subjective Progress Note Date: 07/31/21 stage IA invasive lobular left breast cancer left breast cancer surveillance stage IA invasive lobular cancer [id number] ER+Pr-Her2- moderately differentiated invasive ductal carcinomaHemant Phan is a 75 year old white female seen in consultation for Dr. Elder she is status post left breast lumpectomy and sentinel node biopsy in May 2016. She had a Eve device placed for radiation and radiation was finished on 06/28/2016. She also was seen by medical oncology and an Oncotype test was done and she did not need any chemotherapy. She did have anti-hormonal therapy for approximately one year however she was having side effects and so stopped taking these. She had a bilateral mammogram performed on this was felt to be incomplete and additional imaging was recommended with an ultrasound of the left breast. Ultrasound was performed which revealed a 9 x 7 mm lobular hypoechoic lesion with septations for which biopsy was recommended. Ultrasound core biopsy of the left breast recommended. She had an ultrasound core biopsy on 02-15-20 which was a benign lymph node. She tolerated the procedure without any complications. She had a bilateral mammogram on 01-26-21 which was benign BIRAD 2. She is not complaining of lumps, masses, or nodules in either breast. Radiation oncology note from Dr. Aldridge 03-02-21 reviewed Patient had a computed tomography scan of the chest ordered by Dr. Elder in response to a computed tomography scan of the abdomen which showed a small le tim in the lung. On the CT of the chest there appears to be stable nodularity for which the patient has seen Dr. Maza in the past. 07-31-21 Left breast lumpectomy and SNB 2016 EVE radiation finished 06-28-26 no chemotherapy antihormone therapy 1 year stopped secondary to side effects bilateral mammogram 01-26-21 BENIGN BIRAD 2 The patient has not noted any new lumps masses or nodules of concern in either breast. Family History: maternal aunt: 2 with breast cancer Hormonal history: Menarche: 15 , breast fed: none, age at first : 18 menopause: partial hysterectomy endometriosis and myometirosis at 39; bilateral oophrectomies at 54 BCP: 10 years hormones: none Surgical history: 1. 3 C-sections 2. Tubal ligation 3. Hysterectomy and later completion bilateral oophorectomy 4. lumpectomy left breast/sentinel node biopsy Medical history: 1. HTN 2. High cholesterol Social History: Smoking: Negative Alcohol: Negative Drugs: Negative - Constitutional Constitutional: Denies chills, Denies fever - EENT Eyes: denies blurred vision, denies pain Ears: deny: decreased hearing, tinnitus Ears, nose, mouth and throat: Denies headache, Denies sore throat - Breasts Breasts: bilateral: as per HPI - Cardiovascular Cardiovascular: Reports high blood pressure - Respiratory Respiratory: Denies cough, - Gastrointestinal Comment: lactose intolerant Gastrointestinal: Denies abdominal pain, Denies diarrhea, Denies nausea, Denies vomiting - Genitourinary (Female) Genitourinary: Denies dysuria, Denies hematuria - Menstruation Menstruation: Reports post hysterectomy - Musculoskeletal Musculoskeletal: Reports myalgias - Integumentary Integumentary: Reports rash, Denies pruritus - Neurological Neurological: Denies numbness, Denies weakness - Psychiatric Psychiatric: Denies anxiety, Denies depression - Endocrine Comment: hypothyroid - Hematologic/Lymphatic Comment: none - Allergic/Immunologic Allergic/Immunologic: Reports seasonal allergies Objective - Vital Signs Vital signs: Vital Signs Temp 98.1 F 07/31/21 15:40 Pulse 98 07/31/21 15:40 Resp 18 07/31/21 15:40 BP 160/101 07/31/21 15:40 Pulse Ox 98 07/31/21 15:40 Intake & Output 07/30/21 07/31/21 07/31/21 18:59 06:59 18:59 Weight 80.739 kg - Exam BMI 29.6 - Constitutional General appearance: Present: cooperative - EENT Eyes: Present: EOMI ENT: Present: hearing grossly normal - Neck Neck: Present: normal ROM - Respiratory Respiratory: bilateral: CTA - Cardiovascular Rhythm: regular Heart sounds: normal: S1, S2 - Gastrointestinal General gastrointestinal: Present: soft - Integumentary Integumentary: Present: normal turgor - Musculoskeletal Musculoskeletal: Present: gait normal - Psychiatric Psychiatric: Present: A&O x's 3, appropriate affect, intact judgment & insight - Additional findings Additional findings: Breast Exam: BRA: 40D inspection: post op and radiation changes left breast palpation: right breast: Multi-positional breast exam no dominant masses or nodules of concern Right axilla: No adenopathy of concern Left breast: Postoperative radiation changes noted evidence of any recurrence no dominant masses or nodules of concern Left axilla: No adenopathy of concern Assessment and Plan Assessment: Impression: 1. HTN 2. High cholesterol 3. Left breast stage IA invasive ductal carcinoma No evidence of any recurrent cancer Plan: Continue close surveillance Repeat bilateral mammogram in January with physician exam at that time Continue follow-up with radiation oncology CC: Dr. Shipman
== END | disposition home or self-care (01) ==
LOC: LABWHC1 15:25
PROVIDERS: ATTEND Surgery
DX: Z53.9 Procedure and treatment not carried out, unspecified reason (principal)

== ENCOUNTER → 2022-01-28 | Outpatient (CLI) | payer MEDICARE ==
--- NOTE | 2022-01-28 11:30 | MM ---
Reason for Exam: Hx of breast cancer, conservation therapy. Last screening mammogram was performed 12 month(s) ago. Patient History: Menarche at age 13. First Full-Term at age 18. Left ovary removed at age 54. Right ovary removed at age 54. Hysterectomy at age 35. Postmenopausal. Breast cancer, left, age 70. Other cancer. Patient used Hormonal Contraceptives for 10 years. 06/08/2016, Lumpectomy on the Left side. 02/15/2020, Benign Core Biopsy on the left side. 06/08/2016, Malignant Core Biopsy on the left side. 05/28/2016, Malignant Core Biopsy on the left side. 05/28/2016, Malignant Core Biopsy on the left side. 2017, Radiation Therapy. Maternal aunt had breast cancer, age 50. Maternal aunt had breast cancer, age 50. Tissue Density: The breast tissue is heterogeneously dense. This may lower the sensitivity of mammography. Findings: Analyzed By CAD. Postsurgical and posttreatment change left breast. Microclip x2 left breast related to prior biopsy. There is chronic nodularity subareolar and medial right breast on the cc view. Benign vascular calcifications noted. No significant change from prior exams. Overall Assessment: Benign, BI-RAD 2 Management: Diagnostic Mammogram of both breasts in 1 year. 1. Patient should continue monthly self breast exams. 2. A clinical breast exam by your physician is recommended on an annual basis. 3. This exam should not preclude additional follow-up of suspicious palpable abnormalities. Electronically signed and approved by: Aureliano Rodriguez M.D. Radiologist
== END | disposition home or self-care (01) ==
LOC: RADMAMWWP 10:55
PROVIDERS: ATTEND Surgery
DX: Z08 Encounter for follow-up examination after completed treatment for malignant neoplasm (principal); C50.512 Malignant neoplasm of lower-outer quadrant of left female breast; R91.8 Other nonspecific abnormal finding of lung field; Z17.0 Estrogen receptor positive status [ER+]; Z85.3 Personal history of malignant neoplasm of breast; Z80.3 Family history of malignant neoplasm of breast; Z98.890 Other specified postprocedural states; Z78.0 Asymptomatic menopausal state; Z92.3 Personal history of irradiation
CPT/HCPCS: 77066; G0279; 77062

== ENCOUNTER → 2022-02-04 | Outpatient (CLI) | payer MEDICARE ==
[2022-02-04 12:59] VITALS: BP 136/76; PULSE 103; RESP 16; TEMP 98.1
--- NOTE | 2022-02-04 13:03 | P.PN ---
Subjective Progress Note Date: 02/04/22 Principal diagnosis: stage IA left breast cancer dx. 2017 stage IA invasive lobular left breast cancer left breast cancer surveillance stage IA invasive lobular cancer [id number]- moderately differentiated invasive lobular carcinomaHemant Phan is a 76 year old white female she is status post left breast lumpectomy and sentinel node biopsy in May 2016. She had a Eve device placed for radiation and radiation was finished on 06/28/2016. She also was seen by medical oncology and an Oncotype test was done and she did not need any chemotherapy. She did have anti-hormonal therapy for approximately one year however she was having side effects and so stopped taking these. She had a bilateral mammogram performed on this was felt to be incomplete and additional imaging was recommended with an ultrasound of the left breast. Ultrasound was performed which revealed a 9 x 7 mm lobular hypoechoic lesion with septations for which biopsy was recommended. Ultrasound core biopsy of the left breast recommended. She had an ultrasound core biopsy on 02-15-20 which was a benign lymph node. She tolerated the procedure without any complications. She had a bilateral mammogram on 01-28-22 which was benign BIRAD 2. She is not complaining of lumps, masses, or nodules in either breast. Patient had a computed tomography scan of the chest ordered by Dr. Elder in response to a computed tomography scan of the abdomen which showed a small lesion in the lung. On the CT of the chest there appears to be stable nodularity for which the patient has seen Dr. Maza in the past. 07-28-21 Left breast lumpectomy and SNB 2016 EVE radiation finished 06-28-26 no chemotherapy antihormone therapy 1 year stopped secondary to side effects bilateral mammogram 01-28-22 BENIGN BIRAD 2 The patient has not noted any new lumps masses or nodules of concern in either breast. Family History: maternal aunt: 2 with breast cancer Hormonal history: Menarche: 15 , breast fed: none, age at first : 18 menopause: partial hysterectomy endometriosis and myometirosis at 39; bilateral oophrectomies at 54 BCP: 10 years hormones: none Surgical history: 1. 3 C-sections 2. Tubal ligation 3. Hysterectomy and later completion bilateral oophorectomy 4. lumpectomy left breast/sentinel node biopsy Medical history: 1. HTN 2. High cholesterol Social History: Smoking: Negative Alcohol: Negative Drugs: Negative - Constitutional Constitutional: Denies chills, Denies fever - EENT Eyes: denies blurred vision, denies pain Ears: deny: decreased hearing, tinnitus Ears, nose, mouth and throat: Denies headache, Denies sore throat - Breasts Breasts: bilateral: as per HPI - Cardiovascular Cardiovascular: Reports high blood pressure - Respiratory Respiratory: Denies cough, - Gastrointestinal Comment: lactose intolerant Gastrointestinal: Denies abdominal pain, Denies diarrhea, Denies nausea, Denies vomiting - Genitourinary (Female) Genitourinary: Denies dysuria, Denies hematuria - Menstruation Menstruation: Reports post hysterectomy - Musculoskeletal Musculoskeletal: Reports myalgias - Integumentary Integumentary: Reports rash, Denies pruritus - Neurological Neurological: Denies numbness, Denies weakness - Psychiatric Psychiatric: Denies anxiety, Denies depression - Endocrine Comment: hypothyroid - Hematologic/Lymphatic Comment: none - Allergic/Immunologic Allergic/Immunologic: Reports seasonal allergies Objective - Constitutional General appearance: Present: cooperative - EENT Eyes: Present: EOMI ENT: Present: hearing grossly normal - Neck Neck: Present: normal ROM - Respiratory Respiratory: bilateral: CTA - Cardiovascular Rhythm: regular Heart sounds: normal: S1, S2 - Integumentary Integumentary: Present: normal turgor - Musculoskeletal Musculoskeletal: Present: gait normal - Psychiatric Psychiatric: Present: A&O x's 3, appropriate affect, intact judgment & insight - Additional findings Additional findings: Breast Exam: BRA: 38D inspection: Postop changes left breast Palpation: Right breast: Multiple positional exam no dominant masses or nodules of concern, fibrocystic changes Right axilla: No adenopathy of concern Left breast: Postop changes, no dominant masses or nodules of concern, multiple positional exam Left axilla: No adenopathy of concern Fungal infection under both breast and in the midline between the breast Assessment and Plan Assessment: Fashion: Evidence of any recurrent left breast cancer Fungal infection to be treated with nystatin Plan: Bilateral mammogram in 1 year Status statin cream as needed Follow-up in 1 year CC: Dr. Loera
== END | disposition home or self-care (01) ==
LOC: WWCWWP 12:36
PROVIDERS: ATTEND Surgery
DX: Z53.9 Procedure and treatment not carried out, unspecified reason (principal)

== ENCOUNTER → 2022-10-13 | Outpatient (CLI) | payer MEDICARE ==
[2022-10-13 10:00] VITALS: BP 141/88; PULSE 88; RESP 17; TEMP 98.1
--- NOTE | 2022-10-13 11:04 | P.HPOB ---
History of Present Illness H&P Date: 10/13/22 Chief Complaint: The patient is here for her routine gynecologic exam. This is a 76-year-old with an LMP of 1984. The patient is status post LYSSA and later BSO for benign reasons. She states she was treated for yeast infections twice in the last month. She was complaining of burning and skin irritation just lateral to the labia majora on both sides. She was checked for a urinary infection and this was negative per the patient. Her PCP prescribed Diflucan which she took once without improvement. Because it didn't improve she was placed on a 3 day course of Diflucan and today will be her third day on this. She still feels that the groin skin is irritated and patino. She denies vulvar or vaginal pruritus. She denies vaginal discharge. She has noticed a slight odor from the genital area. She does say she uses a fair amount of soap to wash the groin area. She has also been experiencing urinary leakage and does urinate fairly frequently. She was tested for a UTI as above and this was negative. She typically leaks with coughing or laughing. The leakage is typically a small amount, but is immediately after coughing or laughing. She denies urge incontinence cons of symptoms but occasionally does have to get to the bathroom right away, but does not typically leak at those times. Review of Systems Weight has been stable over the past year. She denies respiratory or cardiac problems. GI: She has felt like she has been a bit more gassy recently. Past Medical History Past Medical History: Cancer, Hyperlipidemia, Hypertension Additional Past Medical History / Comment(s): lt breast CA Stage 1A ER+ s/p lumpectomy and radiation therapy 2017, vertigo. 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 Previous LYSSA and later BSO. History of Any Multi-Drug Resistant Organisms: None Reported Past Surgical History: Breast Surgery, Section, Cholecystectomy, Hysterectomy Additional Past Surgical History / Comment(s): LYSSA 1984 and BSO in 1996. Left breast lumpectomy 2016. section 3. Multiple colonoscopies most recent 2014. Past Anesthesia/Blood Transfusion Reactions: Motion Sickness, Postoperative Nausea & Vomiting (PONV) Additional Past Anesthesia/Blood Transfusion Reaction / Comment(s): vertigo. no hx blood transfusion. Past Psychological History: No Psychological Hx Reported Smoking Status: Never smoker Past Alcohol Use History: Rare (0-1 per month) Past Drug Use History: None Reported Additional History: She has been since 1970 Amaris is rarely sexually active. She is retired. - Past Family History Mother Family Medical History: Myocardial Infarction ([place]) Additional Family Medical History / Comment(s): mother's 2 sisters had breast CA. Father Family Medical History: Liver Disease Additional Family Medical History / Comment(s): cirrhosis,heart problems Sister(s) Family Medical History: Cancer Additional Family Medical History / Comment(s): colon Medications and Allergies Home Medications Medication Instructions Recorded Confirmed Type Ergocalciferol [Vitamin D2 50,000 unit PO MO 06/04/16 10/13/22 History (DRISDOL)] Fexofenadine HCl [Thuy Allergy] 180 mg PO QAM 06/04/16 10/13/22 History Ubidecarenone [Co Q-10] 100 mg PO BID 06/04/16 10/13/22 History lisinopriL [Lisinopril] 10 mg PO QAM 06/04/16 10/13/22 History Rosuvastatin [Crestor] 5 mg PO HS 01/24/20 10/13/22 History Garlic 1 each PO DAILY 07/24/20 10/13/22 History Allergies Allergy/AdvReac Type Severity Reaction Status Date / Time Sulfa (Sulfonamide Allergy Dyspnea Verified 10/13/22 09:55 Antibiotics) Exam Vital Signs Temp Pulse Resp BP Pulse Ox 10/13/22 09:56 98.1 F 88 17 141/88 98 Intake and Output 10/12/22 10/13/22 10/13/22 22:59 06:59 14:59 Other: Weight 82.554 kg Height 5 feet 5 inches, weight 182 pounds, BMI 30.3. This is a well-developed well-nourished white female who is alert and oriented times 3 in no acute distress. HEENT: Within normal limits. NECK: Supple without mass or thyromegaly. CHEST AND LUNGS: Clear to auscultation. HEART: Regular rate and rhythm. BREASTS: Are without mass or discharge. There is a lateral chronic firmness in the left breast consistent with her previous lumpectomy and radiation therapy with no discrete mass. AXILLARY EXAM: Negative for adenopathy. BACK: Negative for CVA tenderness. ABDOMEN: Soft, nontender, without palpable masses. PELVIC EXAM: External genitalia appears normal with mild to moderate atrophy. There is slight inflammation with minimal erythema in the groin regions and appear slightly scratched without broken skin or ulceration. Vagina appears normal with mild to moderate atrophy. There is no evidence of prolapse. There is slight urethral mobility with cough and Valsalva. No urinary leakage was demonstrated. Bimanual examination is negative for mass or tenderness. RECTAL EXAM: Rectovaginal exam is negative for mass or tenderness and is negative for occult blood. There is good sphincter tone and good muscle response when asked to contract these muscles. EXTREMITIES: Nontender. IMPRESSION: 1. 76-year-old menopausal female status post LYSSA and later BSO for benign reasons, with normal gynecologic exam. 2. Burning and irritation in the groin areas lateral to the labia majora with mild inflammation on exam today. Differential diagnosis will include mild contact dermatitis which may be related to the pads she has been wearing for her occasional urinary incontinence. Also this may represent issues with wetness related to the incontinence. Groin a yeast infection is possible, but does not seem to respond to 2 courses of Diflucan. 3. Mild stress urinary incontinence with minimal urethral mobility on exam today. 4. Slight genital odor with no significant discharge on exam today. 5. History of left breast cancer status post lumpectomy and radiation therapy, with no evidence of recurrence on exam today. PLAN: 1. Pap smears have been discontinued. 2. Self breast awareness was discussed with the patient. We have also discussed symptoms associated with inflammatory breast cancer. 3. Diagnostic mammogram will be due in January and the order slip was given to the patient for this. 4. Trial of Kenalog 0.1% cream twice a day as needed alternating with a small amount of petroleum jelly or Aquaphor as a protective layer to the groin area. [facility] a [facility]alog [facility]. 5. Affirm vaginitis panel was obtained from the vagina. 6. Ketal exercises with timed voids were explained to the patient. I have recommended ketal exercises with sets of 20, 3 times a day. We have also discussed the option of referral to a gynecologic urologist such as Dr. Chidi Christy. She will call if she would like a referral for her incontinence symptoms. 7.Osteoporosis prevention was discussed. I have stressed the importance of adequate calcium, vitamin D and regular exercise. Recommended amounts of calcium and vitamin D were also discussed. I recommended a bone density test since her last one was in 2017. The order slip was given to the patient for this. 8. She was advised to return in one year for her annual well woman exam and as needed.
--- NOTE | 2022-10-15 10:58 | P.PN ---
Progress Note - Text Progress Note Date: 10/15/22 Affirm vaginitis panel done on 10/13/22 was negative for Chanelle, Gardnerella, and Trichomonas. The patient was notifeid by phone on 10/15/22. She now believes the skin irritation is related to the pads she has been wearing and plans to try smaller pads. She will use petroleum jelly and the Kenalog cream as directed. She will call if problems. She will also call if she thinks she would like to see the parts sales associate- urologist for urinary incontinence.
== END ==
LOC: WWCWWP 09:47
PROVIDERS: ATTEND Obstetrics & Gynecology
DX: Z85.9 Personal history of malignant neoplasm, unspecified (principal); E78.5 Hyperlipidemia, unspecified; I10 Essential (primary) hypertension; Z17.0 Estrogen receptor positive status [ER+]; Z98.890 Other specified postprocedural states; Z80.3 Family history of malignant neoplasm of breast; Z80.0 Family history of malignant neoplasm of digestive organs; Z88.2 Allergy status to sulfonamides

== ENCOUNTER → 2022-10-21 | Outpatient (CLI) | payer MEDICARE ==
--- NOTE | 2022-10-21 14:29 | US ---
EXAMINATION TYPE: US venous doppler duplex LE LT DATE OF EXAM: 10/21/2022 2:20 PM COMPARISON: NONE CLINICAL INDICATION: Female, 76 years old with history of R60.0 EDEMA; pain behind lt knee SIDE PERFORMED: Left TECHNIQUE: The lower extremity deep venous system is examined utilizing real time linear array sonog savanah with graded compression, doppler sonography and color-flow sonography. VESSELS IMAGED: Common Femoral Vein Deep Femoral Vein Greater Saphenous Vein * Femoral Vein Popliteal Vein Proximal Calf Veins (* superficial vessels) Left Leg: Negative for DVT anechoic area with internal debri noted in lt pop fossa IMPRESSION: Grayscale, color doppler, spectral doppler imaging performed of the deep veins of the lo wer extremities. There is normal flow, compressibility, vascular waveforms.
== END | disposition home or self-care (01) ==
LOC: RADUSWWP 13:15
PROVIDERS: ATTEND Family Medicine
DX: M25.562 Pain in left knee (principal); R60.0 Localized edema

== ENCOUNTER → 2023-10-25 | Outpatient (CLI) | payer MEDICARE ==
[2023-10-25 13:05] VITALS: BP 145/67; PULSE 87; RESP 17; TEMP 98.2
--- NOTE | 2023-10-25 13:45 | P.HPOB ---
History of Present Illness H&P Date: 10/25/23 Chief Complaint: The patient is here for her routine gynecologic exam. This is a 77-year-old with an LMP of 1984. She is status post LYSSA and later BSO for benign reasons. She is without gynecologic complaints at this time. Review of Systems The patient's weight has been stable over the last year. She denies respiratory or cardiac problems. GI: Occasional stomach upset that requires Tums. Past Medical History Past Medical History: Cancer, Hyperlipidemia, Hypertension Additional Past Medical History / Comment(s): lt breast CA Stage 1A ER+ s/p lumpectomy and radiation therapy 2017, vertigo. 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 Previous LYSSA and later BSO. History of Any Multi-Drug Resistant Organisms: None Reported Past Surgical History: Breast Surgery, Section, Cholecystectomy, Hysterectomy Additional Past Surgical History / Comment(s): LYSSA 1984 and BSO in 1996. Left breast lumpectomy 2016. section 3. Multiple colonoscopies most recent 2014. Past Anesthesia/Blood Transfusion Reactions: Motion Sickness, Postoperative Nausea & Vomiting (PONV) Additional Past Anesthesia/Blood Transfusion Reaction / Comment(s): vertigo. no hx blood transfusion. Past Psychological History: No Psychological Hx Reported Smoking Status: Never smoker Past Alcohol Use History: Rare (0-1 drink per month.) Past Drug Use History: None Reported Additional History: She has been since 1970 and is rarely sexually active. She is retired. - Past Family History Mother Family Medical History: Myocardial Infarction ([place]) Additional Family Medical History / Comment(s): mother's 2 sisters had breast CA. Father Family Medical History: Liver Disease Additional Family Medical History / Comment(s): cirrhosis,heart problems Sister(s) Family Medical History: Cancer Additional Family Medical History / Comment(s): colon Medications and Allergies Home Medications Medication Instructions Recorded Confirmed Type Ergocalciferol [Vitamin D2 50,000 unit PO MO 06/04/16 10/25/23 History (DRISDOL)] Fexofenadine HCl [Thuy Allergy] 180 mg PO QAM 06/04/16 10/25/23 History Ubidecarenone [Co Q-10] 100 mg PO BID 06/04/16 10/25/23 History lisinopriL [Lisinopril] 10 mg PO QAM 06/04/16 10/25/23 History Rosuvastatin [Crestor] 5 mg PO HS 01/24/20 10/25/23 History Garlic 1 each PO DAILY 07/24/20 10/25/23 History Triamcinolone 0.1% Cream [Kenalog 1 applic TOPICAL BID PRN #30 gm 10/13/22 10/25/23 Rx 0.1% Cream] Allergies Allergy/AdvReac Type Severity Reaction Status Date / Time Sulfa (Sulfonamide Allergy Dyspnea Verified 10/25/23 13:00 Antibiotics) Exam Vital Signs Temp Pulse Resp BP Pulse Ox 10/25/23 13:01 98.2 F 87 17 145/67 96 Intake and Output 10/24/23 10/25/23 10/25/23 22:59 06:59 14:59 Other: Weight 83.007 kg Height 5 feet 5 inches, weight 184 pounds, BMI 30.5. This is a well-developed well-nourished white female who is alert and oriented times 3 in no acute distress. HEENT: Within normal limits. NECK: Supple without mass or thyromegaly. CHEST AND LUNGS: Clear to auscultation. HEART: Regular rate and rhythm. BREASTS: Are without mass or discharge. There is stable thickening at the lateral aspect of the left breast consistent with her previous lumpectomy and radiation therapy. AXILLARY EXAM: Negative for adenopathy. BACK: Negative for CVA tenderness. ABDOMEN: Soft, nontender, without palpable masses. PELVIC EXAM: External genitalia appears normal with mild to moderate atrophy. Vagina appears normal with mild to moderate atrophy. There is no evidence of prolapse. Bimanual examination is negative for mass or tenderness. RECTAL EXAM: Rectovaginal exam is negative for mass or tenderness and is negative for occult blood. EXTREMITIES: Nontender. IMPRESSION: 1. 77-year-old menopausal female status post LYSSA and later BSO for benign reasons, with normal gynecologic exam. 2. History of left breast cancer status post lumpectomy and radiation therapy with no evidence of recurrence on exam today. PLAN: 1. Pap smears have been discontinued. 2. Self breast awareness was discussed with the patient. We have also discussed symptoms associated with inflammatory breast cancer. 3. Mammogram was last done on 01/31/2023 and was benign. She will repeat this after 1 year. She will continue to do this through Dr. Alcon Al. 4. Osteoporosis prevention was discussed. I have stressed the importance of adequate calcium, vitamin D and regular exercise. Recommended amounts of calcium and vitamin D were also discussed. She is due for a bone density test and the order slip was given to the patient for this. 5. PHQ-2 questionaire was given and she scores 0. This is a negative screen for depression. 6. She was advised to return in one year for her annual well woman exam.
== END ==
LOC: WWCWWP 12:39
PROVIDERS: ATTEND Obstetrics & Gynecology
DX: Z01.419 Encounter for gynecological examination (general) (routine) without abnormal findings (principal); Z78.0 Asymptomatic menopausal state; Z85.3 Personal history of malignant neoplasm of breast; Z48.817 Encounter for surgical aftercare following surgery on the skin and subcutaneous tissue; Z98.890 Other specified postprocedural states; Z92.3 Personal history of irradiation; Z80.3 Family history of malignant neoplasm of breast; Z90.710 Acquired absence of both cervix and uterus; Z90.722 Acquired absence of ovaries, bilateral; Z88.2 Allergy status to sulfonamides

== ENCOUNTER → 2024-02-28 | Outpatient (CLI) | payer MEDICARE ==
--- NOTE | 2024-02-28 14:17 | MM ---
Reason for Exam: Follow-up at short interval from prior study. Last mammogram was performed 1 year(s) and 1 month(s) ago. Patient History: Menarche at age 13. First Full-Term at age 18. Left ovary removed at age 54. Right ovary removed at age 54. Hysterectomy at age 35. Postmenopausal. Breast cancer, left, age 70. Other cancer. Previous chest radiation therapy at age 70. Patient used Hormonal Contraceptives for 10 years. 06/08/2016, Lumpectomy on the Left side. 02/15/2020, Benign Core Biopsy on the left side. 06/08/2016, Malignant Core Biopsy on the left side. 05/28/2016, Malignant Core Biopsy on the left side. 05/28/2016, Malignant Core Biopsy on the left side. 2016, Radiation Therapy. Maternal aunt had breast cancer, age 50. Maternal aunt had breast cancer, age 50. Prior Study Comparison: 07/21/2020 Left Diagnostic Mammogram, [facility]. 07/21/2020 Left Diagnostic Ultrasound, [facility]. 01/26/2021 Bilateral Diagnostic Mammogram, [facility]. 01/28/2022 Bilateral MG 3D diag mammo w/cad [facility], [facility]. 01/31/2023 Bilateral MG 3D diag mammo w/cad [facility], [facility]. Tissue Density: The breasts are heterogeneously dense, which may obscure small masses. Findings: Analyzed By CAD. Table left postlumpectomy changes left breast. No recurrent or residual mass. Chronic nodularity seen right breast without new nodule or mass. No suspicious mitral calcifications. Overall Assessment: Benign, BI-RAD 2 Management: Diagnostic Mammogram of both breasts in 1 year. . Results were given to the patient verbally at the time of exam. Patient should continue monthly self-breast exams. A clinical breast exam by your physician is recommended on an annual basis. This exam should not preclude additional follow-up of suspicious palpable abnormalities. Note on Naomi scores and lifetime risk: 1. A Naomi score greater than 3% is considered moderate risk. If this is the case, consider specialist referral to assess eligibility for a risk reducing agent. 2. If overall lifetime risk for the development of breast cancer is 20% or higher, the patient may qualify for future screening with alternating mammogram and breast MRI. [facility], , 02/28/2024 2:13 PM. Electronically signed and approved by: Burton Cole M.D. Radiologis
== END | disposition home or self-care (01) ==
LOC: RADMAMWWP 13:54
PROVIDERS: ATTEND Surgery
CPT/HCPCS: 77062; 77066

== ENCOUNTER → 2024-03-02 | Outpatient (CLI) | payer MEDICARE ==
[2024-03-02 11:33] VITALS: BP 159/77; PULSE 92; RESP 17; TEMP 97.9
--- NOTE | 2024-03-02 11:54 | P.PN ---
Subjective Progress Note Date: 03/02/24 Principal diagnosis: [id number] ER+Pr-Her2- moderately differentiated invasive lobular carcinoma left breast, [id number] left breast cancer surveillance stage IA invasive lobular cancer 2016 [id number] ER+Pr-Her2- moderately differentiated invasive lobular carcinomaHemant Phan is a 76 year old white female she is status post left breast lumpectomy and sentinel node biopsy in May 2016. She had a Eve device placed for radiation and radiation was finished on 06/28/2016. She also was seen by medical oncology and an Oncotype test was done and she did not need any chemotherapy. She did have anti-hormonal therapy for approximately one year however she was having side effects and so stopped taking these. She had a bilateral mammogram performed on this was felt to be incomplete and additional imaging was recommended with an ultrasound of the left breast. Ultrasound was performed which revealed a 9 x 7 mm lobular hypoechoic lesion with septations for which biopsy was recommended. Ultrasound core biopsy of the left breast recommended. She had an ultrasound core biopsy on 02-15-20 which was a benign lymph node. She tolerated the procedure without any complications. She had a bilateral mammogram on 02-08-24 which was benign BIRAD 2, this was p ersonally reviewed and interpreted She is not complaining of lumps, masses, or nodules in either breast. Patient had a computed tomography scan of the chest ordered by Dr. Elder in response to a computed tomography scan of the abdomen which showed a small lesion in the lung. On the CT of the chest there appears to be stable nodularity for which the patient has seen Dr. Maza in the past. The patient has not noted any new lumps masses or nodules of concern in either breast. Family History: maternal aunt: 2 with breast cancer Hormonal history: Menarche: 15 , breast fed: none, age at first : 18 menopause: partial hysterectomy endometriosis and myometirosis at 39; bilateral oophrectomies at 54 BCP: 10 years hormones: none Surgical history: 1. 3 C-sections 2. Tubal ligation 3. Hysterectomy and later completion bilateral oophorectomy 4. lumpectomy left breast/sentinel node biopsy Medical history: 1. HTN 2. High cholesterol Social History: Smoking: Negative Alcohol: Negative Drugs: Negative - Constitutional Constitutional: Denies chills, Denies fever - EENT Eyes: denies blurred vision, denies pain Ears: deny: decreased hearing, tinnitus Ears, nose, mouth and throat: Denies headache, Denies sore throat - Breasts Breasts: bilateral: as per HPI - Cardiovascular Cardiovascular: Reports high blood pressure - Respiratory Respiratory: Denies cough, - Gastrointestinal Comment: lactose intolerant Gastrointestinal: Denies abdominal pain, Denies diarrhea, Denies nausea, Denies vomiting - Genitourinary (Female) Genitourinary: Denies dysuria, Denies hematuria - Menstruation Menstruation: Reports post hysterectomy - Musculoskeletal Musculoskeletal: Reports myalgias - Integumentary Integumentary: Reports rash, Denies pruritus - Neurological Neurological: Denies numbness, Denies weakness - Psychiatric Psychiatric: Denies anxiety, Denies depression - Endocrine Comment: hypothyroid - Hematologic/Lymphatic Comment: none - Allergic/Immunologic Allergic/Immunologic: Reports seasonal allergies Objective - Vital Signs Vital signs: Vital Signs Temp 97.9 F 03/02/24 11:31 Pulse 92 03/02/24 11:31 Resp 17 03/02/24 11:31 BP 159/77 03/02/24 11:31 Pulse Ox 97 03/02/24 11:31 FiO2 Intake & Output 03/01/24 03/02/24 03/02/24 18:59 06:59 18:59 Weight 83.461 kg - Constitutional General appearance: Present: cooperative - EENT Eyes: Present: EOMI ENT: Present: hearing grossly normal - Neck Neck: Present: normal ROM - Respiratory Respiratory: bilateral: CTA - Cardiovascular Rhythm: regular Heart sounds: normal: S1, S2 - Integumentary Integumentary: Present: normal turgor - Musculoskeletal Musculoskeletal: Present: gait normal - Psychiatric Psychiatric: Present: A&O x's 3, appropriate affect, intact judgment & insight - Additional findings Additional findings: Breast Exam: BRA: 38D inspection: Postop changes left breast, fungal infection under both breast Palpation: Right breast: Multiple positional exam no dominant masses or nodules of concern, fibrocystic changes Right axilla: No adenopathy of concern Left breast: Postop changes, no dominant masses or nodules of concern, multiple positional exam Left axilla: No adenopathy of concern Assessment and Plan Assessment: Impression: Patient status post left breast lumpectomy for stage IA invasive lobular carcinoma 2016, no evidence of any recurrence Patient most recent bilateral mammogram 02-28-24 benign BIRADS 2 fungal infection under both breast Plan: Repeat bilateral mammogram 1 year with examination at that time; February 2025 Patient to follow up sooner any questions or concerns nystatin as needed Cc: Dr. Loera
== END ==
LOC: WWCWWP 10:52
PROVIDERS: ATTEND Surgery

== ENCOUNTER → 2024-07-13 | Outpatient (CLI) | payer MEDICARE ==
[2024-07-13 14:13] VITALS: BP 154/97; PULSE 108; RESP 17; TEMP 98.3
--- NOTE | 2024-07-13 14:57 | P.PN ---
Subjective Progress Note Date: 07/13/24 07-13-24 Principal diagnosis: [id number] ER+Pr-Her2- moderately differentiated invasive lobular carcinoma left breast, 201602-21-24 left breast cancer surveillance stage IA invasive lobular cancer 2016 [id number] ER+Pr-Her2- moderately differentiated invasive lobular carcinoma. Emilie is a 76 year old white female she is status post left breast lumpectomy and sentinel node biopsy in May 2016. She had a Eve device placed for radiation and radiation was finished on 06/28/2016. She also was seen by medical oncology and an Oncotype test was done and she did not need any chemotherapy. She did have anti-hormonal therapy for approximately one year however she was having side effects and so stopped taking these. She had a bilateral mammogram performed on this was felt to be incomplete and additional imaging was recommended with an ultrasound of the left breast. Ultrasound was performed which revealed a 9 x 7 mm lobular hypoechoic lesion with septations for which biopsy was recommended. Ultrasound core biopsy of the left breast recommended. She had an ultrasound core biopsy on 02-15-20 which was a benign lymph node. She tolerated the procedure without any complications. She had a bilateral mammogram on 02-08-24 which was benign BIRAD 2, this was personally reviewed and interpreted She is not complaining of lumps, masses, or nodules in either breast. Patient had a computed tomography scan of the chest ordered by Dr. Elder in response to a computed tomography scan of the abdomen which showed a small lesion in the lung. On the CT of the chest there appears to be stable nodularity for which the patient has seen Dr. Maza in the past. The patient has not noted any new lumps masses or nodules of concern in either breast. 07-13-24 Emilie is complaining of pain in her right breast and under her arm. The pain has been intermittent in nature. At this time she is not experiencing any pain. The cancer was in the opposite breast. Family History: maternal aunt: 2 with breast cancer Hormonal history: Menarche: 15 , breast fed: none, age at first : 18 menopause: partial hysterectomy endometriosis and myometirosis at 39; bilateral oophrectomies at 54 BCP: 10 years hormones: none Surgical history: 1. 3 C-sections 2. Tubal ligation 3. Hysterectomy and later completion bilateral oophorectomy 4. lumpectomy left breast/sentinel node biopsy Medical history: 1. HTN 2. High cholesterol Social History: Smoking: Negative Alcohol: Negative Drugs: Negative - Constitutional Constitutional: Denies chills, Denies fever - EENT Eyes: denies blurred vision, denies pain Ears: deny: decreased hearing, tinnitus Ears, nose, mouth and throat: Denies headache, Denies sore throat - Breasts Breasts: bilateral: as per HPI - Cardiovascular Cardiovascular: Reports high blood pressure - Respiratory Respiratory: Denies cough, - Gastrointestinal Comment: lactose intolerant Gastrointestinal: Denies abdominal pain, Denies diarrhea, Denies nausea, Denies vomiting - Genitourinary (Female) Genitourinary: Denies dysuria, Denies hematuria - Menstruation Menstruation: Reports post hysterectomy - Musculoskeletal Musculoskeletal: Reports myalgias - Integumentary Integumentary: Reports rash, Denies pruritus - Neurological Neurological: Denies numbness, Denies weakness - Psychiatric Psychiatric: Denies anxiety, Denies depression - Endocrine Comment: hypothyroid - Hematologic/Lymphatic Comment: none - Allergic/Immunologic Allergic/Immunologic: Reports seasonal allergies Objective - Vital Signs Vital signs: Vital Signs Temp 98.3 F 07/13/24 14:11 Pulse 108 H 07/13/24 14:11 Resp 17 07/13/24 14:11 BP 154/97 07/13/24 14:11 Pulse Ox 97 07/13/24 14:11 FiO2 Intake & Output 07/12/24 07/13/24 07/13/24 18:59 06:59 18:59 Weight 79.379 kg - Constitutional General appearance: Present: cooperative - EENT Eyes: Present: EOMI ENT: Present: hearing grossly normal - Neck Neck: Present: normal ROM - Respiratory Respiratory: bilateral: CTA - Cardiovascular Rhythm: regular Heart sounds: normal: S1, S2 - Integumentary Integumentary: Present: normal turgor - Musculoskeletal Musculoskeletal: Present: gait normal - Psychiatric Psychiatric: Present: A&O x's 3, appropriate affect, intact judgment & insight - Additional findings Additional findings: Breast Exam: BRA: 38D inspection: Postop changes left breast, fungal infection under both breast Palpation: Right breast: Multiple positional exam no dominant masses or nodules of concern, fibrocystic changes Right axilla: No adenopathy of concern left breast exam at the last appointment Assessment and Plan Assessment: Impression: Patient status post left breast lumpectomy for stage IA invasive lobular carcinoma 2016, no evidence of any recurrence Patient most recent bilateral mammogram 02-28-24 benign BIRADS 2 fungal infection under both breast Plan: Repeat bilateral mammogram 1 year with examination at that time; February 2025 Patient to follow up sooner any questions or concerns nystatin as needed Cc: Dr. Loera
== END ==
LOC: WWCWWP 14:00
PROVIDERS: ATTEND Surgery
DX: C50.912 Malignant neoplasm of unspecified site of left female breast (principal); Z85.3 Personal history of malignant neoplasm of breast

== ENCOUNTER → 2024-11-19 | Outpatient (CLI) | payer MEDICARE ==
--- NOTE | 2024-11-19 14:13 | US ---
EXAMINATION TYPE: US thyroid st tissue head/neck DATE OF EXAM: 11/19/2024 COMPARISON: NONE CLINICAL INDICATION: Female, 78 years old with history of E04.1 NONTOXIC SINGLE THYROID NODULE; Pt st ates possible history of nodules visualized years ago at outside facility TECHNIQUE: Grayscale and color Doppler imaging of the thyroid gland. FINDINGS: GLAND SIZE: Right Lobe: 3.6 x 1.2 x 1.6 cm Overall Parenchyma: homogeneous Left Lobe: 4.3 x 1.3 x 1.2 cm Overall Parenchyma: homogeneous Isthmus Thickness: 0.3 cm NODULES RIGHT: # of nodules measured on right: 1 1. 0.5 X 0.4 x 0.4 cm, mid, Prior size: No prior here TIRADS Score: 4 TIRADS Category 4: Composition: Solid or almost completely solid (2 points). Echogenicity: Hypoechoic (2 points). Shape: Wider than tall (0 points). Margin: Ill-defined (0 points). Echogenic foci: None or large comet-tail artifacts (0 points) Recommendation: If >1.5cm: FNA; If >1cm: Follow up at 1,2, 3,5 years LEFT: # of nodules measured on left: 1 1. 0.4 X 0.3 x 0.4 cm, lower, Prior size: No prior here TIRADS Score: 4 TIRADS Category 4: Composition: Solid or almost completely solid (2 points). Echogenicity: Hypoechoic (2 points). Shape: Wider than tall (0 points). Margin: Smooth (0 points). Echogenic foci: None or large comet-tail artifacts (0 points) Recommendation: If >1.5cm: FNA; If >1cm: Follow up at 1,2, 3,5 years ISTHMUS: # of nodules measured in the isthmus: 0 Bilateral neck scanned, no evidence of lymphadenopathy. Sub-centimeter nodules as described above. IMPRESSION: Bilateral thyroid nodules that meet criteria for follow-up. Highest TI-RADS level nodule reported: 2017 ACR TI-RADS LEVEL: TI-RADS 4 - Moderately Suspicious: Follow if > 1 cm, FNA if > 1.5 cm TI-RADS assessment score and recommendation for follow-up based on appropriate scoring and treatment protocols. TR1 Benign No FNA TR2 Not suspicious No FNA TR3: If nodule size is ? 2.5 cm, FNA is recommended. If nodule size is ? 1.5 cm, follow-up imaging at 1, 3, and 5 years is recommended. TR4: If nodule size is ? 1.5 cm, FNA is recommended. If nodule size is ? 1.0 cm, follow-up imaging at 1, 2, 3, and 5 years is recommended. TR5: If nodule size is ? 1.0 cm, FNA is recommended. If nodule size is ? 0.5 cm, annual follow-up for up to 5 years is recommended. TR 1 thyroid nodules have a 0.3 % risk of malignancy. TR 2 thyroid nodules have a 1.5 % risk of malignancy. TR 3 thyroid nodules have a 4.8 % risk of malignancy. TR 4 thyroid nodules have a 9.1 % risk of malignancy. TR 5 thyroid nodules have a 35 % risk of malignancy. [email or web address] [facility], , 11/19/2024 2:11 PM
== END | disposition home or self-care (01) ==
LOC: RADUSWWP 13:27
PROVIDERS: ATTEND Family Medicine
DX: E04.2 Nontoxic multinodular goiter (principal)
CPT/HCPCS: 76536

== ENCOUNTER → 2024-11-20 | Outpatient (CLI) | payer MEDICARE ==
[2024-11-20 14:17] VITALS: BP 128/93; PULSE 82; RESP 16; TEMP 98.7
--- NOTE | 2024-11-20 14:47 | P.HPOB ---
History of Present Illness H&P Date: 11/20/24 Chief Complaint: Patient is here for her routine gynecologic exam. This is a 78-year-old G3, P3 with an LMP of 1984. The patient is status post LYSSA and later BSO for benign reasons. She is without gynecologic complaints. Review of Systems The patient has lost 12 pounds over the last year. She denies respiratory, cardiac, or G.I. problems. Past Medical History Past Medical History: Cancer, Hyperlipidemia, Hypertension, Thyroid Disorder Additional Past Medical History / Comment(s): lt breast CA Stage 1A ER+ s/p lumpectomy and radiation therapy 2017, vertigo. Bilateral thyroid nodules. 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 Previous LYSSA and later BSO. History of Any Multi-Drug Resistant Organisms: None Reported Past Surgical History: Breast Surgery, Section, Cholecystectomy, Hysterectomy Additional Past Surgical History / Comment(s): LYSSA 1984 and BSO in 1996. Left breast lumpectomy 2016. section 3. Multiple colonoscopies most recent 2014. Past Anesthesia/Blood Transfusion Reactions: Motion Sickness, Postoperative Nausea & Vomiting (PONV) Additional Past Anesthesia/Blood Transfusion Reaction / Comment(s): vertigo. no hx blood transfusion. Past Psychological History: No Psychological Hx Reported Smoking Status: Never smoker Past Alcohol Use History: Rare (0-1 drink per month.) Past Drug Use History: None Reported Additional History: She has been since 1970 and is rarely sexually active. She is retired. - Past Family History Mother Family Medical History: Myocardial Infarction (SD) Additional Family Medical History / Comment(s): mother's 2 sisters had breast CA. Father Family Medical History: Liver Disease Additional Family Medical History / Comment(s): cirrhosis,heart problems Sister(s) Family Medical History: Cancer Additional Family Medical History / Comment(s): colon Medications and Allergies Home Medications Medication Instructions Recorded Confirmed Type Ergocalciferol [Vitamin D2 50,000 unit PO MO 06/04/16 11/20/24 History (DRISDOL)] Fexofenadine HCl [Thuy Allergy] 180 mg PO QAM 06/04/16 11/20/24 History Ubidecarenone [Co Q-10] 100 mg PO BID 06/04/16 11/20/24 History lisinopriL [Lisinopril] 10 mg PO QAM 06/04/16 11/20/24 History Rosuvastatin [Crestor] 5 mg PO HS 01/24/20 11/20/24 History Garlic 1 each PO DAILY 07/24/20 11/20/24 History Triamcinolone 0.1% Cream [Kenalog 1 applic TOPICAL BID PRN #30 gm 10/13/22 11/20/24 Rx 0.1% Cream] Nystatin/Triamcinolone Acet 1 applic TOPICAL TID #30 gram 03/02/24 11/20/24 Rx [Nystatin-Triamcinolone Cream] Allergies Allergy/AdvReac Type Severity Reaction Status Date / Time Sulfa (Sulfonamide Allergy Dyspnea Verified 11/20/24 14:08 Antibiotics) Exam Vital Signs Temp Pulse Resp BP Pulse Ox 11/20/24 14:09 98.7 F 82 16 128/93 97 Intake and Output 11/19/24 11/20/24 11/20/24 22:59 06:59 14:59 Other: Weight 78.018 kg Height 5 feet 6 inches, weight 172 pounds, BMI 27.8. This is a well-developed well-nourished white female who is alert and oriented times 3 in no acute distress. HEENT: Within normal limits. NECK: Supple without mass or thyromegaly. CHEST AND LUNGS: Clear to auscultation. HEART: Regular rate and rhythm. BREASTS: Are without mass or discharge. There is a scar and dimpled area at the 3 o'clock position of the left breast consistent with her previous lumpectomy. AXILLARY EXAM: Negative for adenopathy. BACK: Negative for CVA tenderness. ABDOMEN: Soft, nontender, without palpable masses. PELVIC EXAM: External genitalia appears normal with mild to moderate atrophy. Vagina appears normal with mild to moderate atrophy. There is no evidence of prolapse. Bimanual examination is negative for mass or tenderness. RECTAL EXAM: Rectovaginal exam is negative for mass or tenderness and is negative for occult blood. EXTREMITIES: Nontender. IMPRESSION: 1. 78-year-old menopausal female status post LYSSA and later RSO for benign reasons, with normal gynecologic exam. 2. History of left breast cancer status post lumpectomy and radiation therapy in 2017. No evidence of recurrence on exam today. PLAN: 1. Pap smears have been discontinued. 2. Self breast awareness was discussed with the patient. We have also discussed symptoms associated with inflammatory breast cancer. 3. Bilateral diagnostic mammogram will be due in February. The order slip was given to the patient for this. 4. Osteoporosis prevention was discussed. She is due for another bone density test and the order slip was given to the patient for this. 5. She was advised to return in one year for her annual well woman exam.
== END ==
LOC: WWCWWP 13:50
PROVIDERS: ATTEND Obstetrics & Gynecology
DX: Z01.419 Encounter for gynecological examination (general) (routine) without abnormal findings (principal); Z78.0 Asymptomatic menopausal state; Z90.710 Acquired absence of both cervix and uterus; Z85.3 Personal history of malignant neoplasm of breast; Z88.2 Allergy status to sulfonamides; Z92.3 Personal history of irradiation; Z98.890 Other specified postprocedural states